=== PATIENT | female | born 1975 | race Caucasian/White ===

== ENCOUNTER 2016-07-28 06:34 | Emergency (ER) | payer SELFPAY ==
[2016-07-28] MEDS ORDERED: ONDANSETRON 4 MG TAB.RAPDIS PO ONE (06:48)
--- NOTE | 2016-07-28 07:05 | ER Document Report ---
ED General - General Chief Complaint: Nausea/Vomiting/Diarrhea Stated Complaint: VOMITING Mode of Arrival: Ambulatory Information source: Patient Notes: 41-year-old female presents with complaints of nausea vomiting over the past week. Patient notes she came with the family member to the hospital a week ago , believes she had flulike symptoms since then. Patient denies any fevers or chills TRAVEL OUTSIDE OF THE [place] IN LAST 30 DAYS: No - HPI Onset: Last week Onset/Duration: Persistent Quality of pain: No pain Severity: Mild Pain Level: Denies Associated symptoms: Nausea, Vomiting, Sinus pain/drainage Exacerbated by: Denies Relieved by: Denies Similar symptoms previously: No Recently seen / treated by doctor: No - Related Data Allergies/Adverse Reactions: ceftriaxone sodium [From Rocephin] Allergy (Verified 04/19/16 12:06) meperidine HCl [From Demerol] Allergy (Verified 04/19/16 12:06) naproxen Allergy (Verified 04/19/16 12:06) promethazine HCl [From Phenergan] Allergy (Verified 04/19/16 12:06) Sulfa (Sulfonamide Antibiotics) Allergy (Verified 04/19/16 12:06) tramadol Allergy (Verified 04/19/16 12:06) Past Medical History - Social History Smoking Status: Current Every Day Smoker Cigarette use (# per day): Yes Chew tobacco use (# tins/day): No Smoking Education Provided: No Frequency of alcohol use: None Drug Abuse: None Family History: Arthritis, CAD, COPD, CVA, DM, Hyperlipidemia, Hypertension, Malignancy Patient has suicidal ideation: No Patient has homicidal ideation: No - Past Medical History Cardiac Medical History: Reports: Hx Hypertension Neurological Medical History: Reports: Hx Migraine Endocrine Medical History: Reports: Hx Diabetes Mellitus Type 2 - Diet- controlled diabetes Renal/ Medical History: Denies: Hx Peritoneal Dialysis GI Medical History: Reports: Hx Gastroesophageal Reflux Disease Musculoskeltal Medical History: Reports Hx Arthritis, Reports Hx Musculoskeletal Deformity, Reports Hx Musculoskeletal Trauma Psychiatric Medical History: Reports: Hx Anxiety, Hx Depression Traumatic Medical History: Reports: Hx Fractures - Toe Past Surgical History: Reports: Hx Adenoidectomy, Hx Dilation and Curettage, Hx Genitourinary Surgery - D&C, Hx Hysterectomy, Hx Tonsillectomy - adnoids removed , tubes in ears - Immunizations Immunizations up to date: Yes Hx Diphtheria, Pertussis, Tetanus Vaccination: Yes Review of Systems - Review of Systems Notes: REVIEW OF SYSTEMS: CONSTITUTIONAL : Denies fever, chills, or sweats. Denies recent illness. EENT: Denies eye, ear, throat, or mouth pain or symptoms. Denies nasal or sinus congestion or discharge. Denies throat, tongue, or mouth swelling or difficulty swallowing. CARDIOVASCULAR: Denies chest pain. Denies palpitations or racing or irregular heart beat. Denies ankle edema. RESPIRATORY: Denies cough, cold, or chest congestion. Denies shortness of breath, difficulty breathing, or wheezing. GASTROINTESTINAL: Admits to nausea vomiting gastric reflux symptoms GENITOURINARY: Denies difficulty urinating, painful urination, burning, frequency, blood in urine, or discharge. FEMALE GENITOURINARY: Denies vaginal bleeding, heavy or abnormal periods, irregular periods. Denies vaginal discharge or odor. MUSCULOSKELETAL: Denies back or neck pain or stiffness. Denies joint pain or swelling. SKIN: Denies rash, lesions or sores. HEMATOLOGIC : Denies easy bruising or bleeding. LYMPHATIC: Denies swollen, enlarged glands. NEUROLOGICAL: Denies confusion or altered mental status. Denies passing out or loss of consciousness. Denies dizziness or lightheadedness. Denies headache. Denies weakness or paralysis or loss of use of either side. Denies problems with gait or speech. Denies sensory loss, numbness, or tingling. Denies seizures. PSYCHIATRIC: Denies anxiety or stress. Denies depression, suicidal ideation, or homicidal ideation. ALL OTHER SYSTEMS REVIEWED AND NEGATIVE. Dictation was performed using iWelcome voice recognition software PHYSICAL EXAMINATION: GENERAL: Well-appearing, well-nourished and in no acute distress. HEAD: Atraumatic, normocephalic. EYES: Pupils equal round and reactive to light, extraocular movements intact, conjunctiva are normal. ENT: Nares patent, oropharynx clear without exudates. Moist mucous membranes. NECK: Normal range of motion, supple without lymphadenopathy LUNGS: Breath sounds clear to auscultation bilaterally and equal. No wheezes rales or rhonchi. HEART: Regular rate and rhythm without murmurs ABDOMEN: Soft, nontender, nondistended abdomen. No guarding, no rebound. No masses appreciated. Patient actively dry heaving Female : deferred Musculoskeletal: Normal range of motion, no pitting or edema. No cyanosis. NEUROLOGICAL: Cranial nerves grossly intact. Normal speech, normal gait. Normal sensory, motor exams PSYCH: Normal mood, normal affect. SKIN: Warm, Dry, normal turgor, no rashes or lesions noted. Physical Exam - Vital signs Vitals: Temp Pulse Resp BP Pulse Ox 97.3 F 89 18 125/96 H 100 07/28/16 06:38 07/28/16 06:38 07/28/16 06:38 07/28/16 06:38 07/28/16 06:38 Course - Re-evaluation Re-evalutation: 07/28/16 07:03 Patient will be given nausea control influenza is pending otherwise she looks well is in no distress 07/28/16 07:04 07/28/16 08:11 Patient's nausea is well controlled, now she admits that she is having pressure sensation sinus drainage. I will treat her for acute sinusitis After performing a Medical Screening Examination, I estimate there is LOW risk for ACUTE CORONARY SYNDROME, RESPIRATORY FAILURE, SEPSIS OR MENINGITIS, thus I consider the discharge disposition reasonable. The patient and I have discussed the diagnosis and risks, and we agree with discharging home with close follow- up. We also discussed returning to the Emergency Department immediately if new or worsening symptoms occur. We have discussed the symptoms which are most concerning (e.g., changing or worsening pain, trouble swallowing or breathing, neck stiffness, fever) that necessitate immediate return. - Vital Signs Vital signs: Temp Pulse Resp BP Pulse Ox 97.7 F 89 18 125/96 H 100 07/28/16 07:59 07/28/16 06:38 07/28/16 06:38 07/28/16 06:38 07/28/16 06:38 Discharge - Discharge Clinical Impression: Sinusitis Qualifiers: Sinusitis location: frontal Chronicity: acute Recurrence: non-recurrent Qualified Code(s): J01.10 - Acute frontal sinusitis, unspecified Nausea & vomiting Qualifiers: Vomiting type: unspecified Vomiting Intractability: non-intractable Qualified Code(s): R11.2 - Nausea with vomiting, unspecified Condition: Stable Disposition: HOME, SELF-CARE Instructions: Vomiting ([facility]) Additional Instructions: Follow up with your physician tomorrow for further care or return to the ED IMMEDIATELY if symptoms worsen or new concerns occur Prescriptions: Azithromycin 250 mg PO ASDIR PRN #6 tablet PRN Reason: Ondansetron [Zofran Odt] 8 mg PO Q6 #14 tab.fatoudis
[2016-07-28 08:30] VITALS: BP 118/86
== END 2016-07-28 08:30 | disposition home or self-care (01) ==
LOC: ER 06:34
DX: J01.10 Acute frontal sinusitis, unspecified (principal); R11.2 Nausea with vomiting, unspecified; R19.7 Diarrhea, unspecified; F17.210 Nicotine dependence, cigarettes, uncomplicated; E11.9 Type 2 diabetes mellitus without complications; I10 Essential (primary) hypertension; Z88.3 Allergy status to other anti-infective agents; Z88.2 Allergy status to sulfonamides
CPT/HCPCS: 99283; 87804; S0119

== ENCOUNTER 2017-03-26 19:07 | Emergency (ER) | payer SELFPAY ==
--- NOTE | 2017-03-26 21:06 | RADIOLOGY REPORT (SQ) ---
EXAM DESCRIPTION: FOOT RIGHT COMPLETE COMPLETED DATE/TIME: 03/26/2017 8:34 pm REASON FOR STUDY: injury COMPARISON: None. NUMBER OF VIEWS: Three views. TECHNIQUE: AP, lateral and oblique radiographic images acquired of the right foot. LIMITATIONS: None. FINDINGS: MINERALIZATION: Normal. BONES: No acute fracture or dislocation. No worrisome bone lesions. JOINTS: No effusions. SOFT TISSUES: No soft tissue swelling. No foreign body. OTHER: No other significant finding. IMPRESSION: NEGATIVE STUDY OF THE RIGHT FOOT. NO RADIOGRAPHIC EVIDENCE OF ACUTE INJURY. TECHNICAL DOCUMENTATION: JOB ID: [id number] [employer]- All Rights Reserved
[2017-03-26] MEDS ORDERED: HYDROCODONE/ACETAMINOPHEN 5-325 MG 6 TAB/DSPK PO PRN (21:33)
--- NOTE | 2017-03-26 21:35 | ER Document Report ---
HPI - HPI Patient complains to provider of: Right foot injury Pain Level: 4 Context: Patient is a 42-year-old female comes emergency department for chief complaint of pain to her right foot. She states that yesterday morning she accidentally kicked a box spring, she reports a bruise over her foot and today it seems increasingly painful and difficult to walk on. She states she is afraid she broke it and she came in to have it checked. She denies any other areas of pain. She denies any other injuries. - REPRODUCTIVE Reproductive: DENIES: : - DERM Skin Color: Normal Past Medical History - General Information source: Patient - Social History Smoking Status: Never Smoker Frequency of alcohol use: None Drug Abuse: None Lives with: Family Family History: Arthritis, CAD, COPD, CVA, DM, Hyperlipidemia, Hypertension, Malignancy Patient has suicidal ideation: No Patient has homicidal ideation: No - Past Medical History Cardiac Medical History: Reports: Hx Hypertension Neurological Medical History: Reports: Hx Migraine Endocrine Medical History: Reports: Hx Diabetes Mellitus Type 2 - Diet- controlled diabetes Renal/ Medical History: Denies: Hx Peritoneal Dialysis GI Medical History: Reports: Hx Gastroesophageal Reflux Disease Musculoskeltal Medical History: Reports Hx Arthritis, Reports Hx Musculoskeletal Deformity, Reports Hx Musculoskeletal Trauma Psychiatric Medical History: Reports: Hx Anxiety, Hx Depression Traumatic Medical History: Reports: Hx Fractures - Toe Past Surgical History: Reports: Hx Adenoidectomy, Hx Dilation and Curettage, Hx Genitourinary Surgery - D&C, Hx Hysterectomy, Hx Tonsillectomy - adnoids removed , tubes in ears - Immunizations Immunizations up to date: Yes Hx Diphtheria, Pertussis, Tetanus Vaccination: Yes Vertical Provider Document - CONSTITUTIONAL General Appearance: WD/WN, No Apparent Distress - INFECTION CONTROL TRAVEL OUTSIDE OF THE [place] IN LAST 30 DAYS: No - HEENT HEENT: Atraumatic - NECK Neck: Normal Inspection - RESPIRATORY Respiratory: Breath Sounds Normal, No Respiratory Distress O2 Sat by Pulse Oximetry: 99 - CARDIOVASCULAR Cardiovascular: Regular Rate, Regular Rhythm - GI/ABDOMEN Gastrointestinal: Abdomen Soft, Abdomen Non-Tender - BACK Back: Normal Inspection - MUSCULOSKELETAL/EXTREMETIES Musculoskeletal/Extremeties: Tender - Small ecchymosis noted over the right dorsal lateral foot, mild surrounding tenderness, range of motion of the toes intact, normal capillary refill and sensation, normal ankle exam, normal leg, knee, hip exam. Course - Re-evaluation Re-evalutation: Mild contusion over the dorsal right foot. X-rays negative for fracture. Patient states she rarely has crutches and ibuprofen at home. Giving recommendations. - Vital Signs Vital signs: Temp Pulse Resp BP Pulse Ox 98.6 F 95 20 139/85 H 99 03/26/17 19:32 03/26/17 19:32 03/26/17 19:32 03/26/17 19:32 03/26/17 19:32 - Diagnostic Test Radiology reviewed: Image reviewed, Reports reviewed Discharge - Discharge Clinical Impression: Right foot injury Qualifiers: Encounter type: initial encounter Qualified Code(s): S99.921A - Unspecified injury of right foot, initial encounter Contusion of right foot Qualifiers: Encounter type: initial encounter Qualified Code(s): S90.31XA - Contusion of right foot, initial encounter Condition: Stable Disposition: HOME, SELF-CARE Additional Instructions: Your x-ray does not show any fracture or concerning abnormality. Examination is consistent with contusion, soft tissue injury, recommendation is to apply ice to the area 3-4 times a day for 10-15 minutes, take your ibuprofen every 6 hours, elevate your foot, and use your crutches for the next 2-3 days. Resume normal activity as tolerated. Follow-up with primary care. Return to the emergency department for any concerning symptoms including severe pain or swelling. Forms: Return to Work Referrals: BAUTISTA ALBERTS MD [Primary Care Provider] - Follow up as needed
[2017-03-26 21:53] VITALS: BP 121/84
== END 2017-03-26 21:53 | disposition home or self-care (01) ==
LOC: ER 19:07
DX: S90.31XA Contusion of right foot, initial encounter (principal); M79.671 Pain in right foot; W22.03XA Walked into furniture, initial encounter; E11.9 Type 2 diabetes mellitus without complications; I10 Essential (primary) hypertension; Z87.81 Personal history of (healed) traumatic fracture
CPT/HCPCS: 99283

== ENCOUNTER 2017-04-23 11:33 | Emergency (ER) | payer SELFPAY ==
--- NOTE | 2017-04-23 12:13 | ER Document Report ---
ED Fall - General Stated Complaint: FALL/MOUTH PAIN Time Seen by Provider: 04/23/17 12:00 Mode of Arrival: Ambulatory Information source: Patient TRAVEL OUTSIDE OF THE [place] IN LAST 30 DAYS: No - HPI Patient complains to provider of: fall Occurred: This morning - pt fell earlier this am with injury to jaw and L knee. No LOC, no neck pain - Related data Allergies/Adverse Reactions: ceftriaxone sodium [From Rocephin] Allergy (Verified 04/23/17 12:23) hydrocodone Allergy (Verified 04/23/17 12:23) meperidine HCl [From Demerol] Allergy (Verified 04/23/17 12:23) naproxen Allergy (Verified 04/23/17 12:23) phenazopyridine [From Pyridium] Allergy (Verified 04/23/17 12:23) promethazine HCl [From Phenergan] Allergy (Verified 04/23/17 12:23) Sulfa (Sulfonamide Antibiotics) Allergy (Verified 04/23/17 12:23) tramadol Allergy (Verified 04/23/17 12:23) Past Medical History - General Information source: Patient - Social History Smoking Status: Never Smoker Cigarette use (# per day): No Chew tobacco use (# tins/day): No Smoking Education Provided: No Family History: Arthritis, CAD, COPD, CVA, DM, Hyperlipidemia, Hypertension, Malignancy - Past Medical History Cardiac Medical History: Reports: Hx Hypertension Neurological Medical History: Reports: Hx Migraine Endocrine Medical History: Reports: Hx Diabetes Mellitus Type 2 - Diet- controlled diabetes Renal/ Medical History: Denies: Hx Peritoneal Dialysis GI Medical History: Reports: Hx Gastroesophageal Reflux Disease Musculoskeltal Medical History: Reports Hx Arthritis, Reports Hx Musculoskeletal Deformity, Reports Hx Musculoskeletal Trauma Psychiatric Medical History: Reports: Hx Anxiety, Hx Depression Traumatic Medical History: Reports: Hx Fractures - Toe Past Surgical History: Reports: Hx Adenoidectomy, Hx Dilation and Curettage, Hx Genitourinary Surgery - D&C, Hx Hysterectomy, Hx Tonsillectomy - adnoids removed , tubes in ears - Immunizations Immunizations up to date: Yes Hx Diphtheria, Pertussis, Tetanus Vaccination: Yes Review of Systems - Review of Systems Constitutional: No symptoms reported EENT: Other - jaw pain Cardiovascular: No symptoms reported Respiratory: No symptoms reported Gastrointestinal: No symptoms reported Musculoskeletal: See HPI, Joint pain -: Yes All other systems reviewed and negative Physical Exam - General General appearance: Appears well In distress: None - HEENT Head: Other - there is TTP of the R mandible diffusely -- pt is able to open and close her mouth and handle her secretions. Tympanic membrane: Normal Pharynx: Normal Neck: Normal - Respiratory Respiratory status: No respiratory distress Chest status: Nontender Breath sounds: Normal - Cardiovascular Rhythm: Regular Heart sounds: Normal auscultation - Abdominal Inspection: Normal Tenderness: Nontender - Extremities Knee: Tender - there is TTP of the L knee diffusely with no effusion. There is no valgus or varus laxity and there is neg anterior and posterior drawer sign. There is FROM and it is N/V intact Course - Diagnostic Test Radiology reviewed: Reports reviewed - neg Procedures - Immobilization Left Knee Time completed: 13:09 Pre-Proc Neuro Vasc Exam: Normal Immobilizer type: Crutches, Knee immobilizer Performed by: RN Post-Proc Neuro Vasc Exam: Normal Alignment checked and good: Yes Discharge - Discharge Clinical Impression: Fall Qualifiers: Encounter type: initial encounter Qualified Code(s): W19.XXXA - Unspecified fall, initial encounter Condition: Stable Disposition: HOME, SELF-CARE Additional Instructions: rest, take meds as prescribed, return if worse Prescriptions: Cyclobenzaprine HCl [Flexeril 10 mg Tablet] 10 mg PO TIDP PRN #15 tab PRN Reason: Methylprednisolone [Medrol Dosepack (4 mg/Tab) 21 Tab/Dosepak] 4 mg PO ASDIR PRN #21 tab.ds.pk PRN Reason: Tramadol HCl 50 mg PO BID #14 tablet
--- NOTE | 2017-04-23 12:53 | RADIOLOGY REPORT (SQ) ---
EXAM DESCRIPTION: KNEE LEFT 3 VIEWS COMPLETED DATE/TIME: 04/23/2017 12:44 pm REASON FOR STUDY: fall COMPARISON: None. NUMBER OF VIEWS: Three views. TECHNIQUE: AP, lateral, and sunrise patella radiographic images acquired of the left knee. LIMITATIONS: None. FINDINGS: MINERALIZATION: Normal. BONES: No acute fracture or dislocation. No worrisome bone lesions. JOINT: No effusion. SOFT TISSUES: No soft tissue swelling. No radio-opaque foreign body. OTHER: No other significant finding. IMPRESSION: NEGATIVE STUDY OF THE LEFT KNEE. NO RADIOGRAPHIC EVIDENCE OF ACUTE INJURY. TECHNICAL DOCUMENTATION: JOB ID: [id number] [employer]- All Rights Reserved
--- NOTE | 2017-04-23 12:55 | RADIOLOGY REPORT (SQ) ---
EXAM DESCRIPTION: MANDIBLE 4 VIEWS OR MORE COMPLETED DATE/TIME: 04/23/2017 12:44 pm REASON FOR STUDY: fall COMPARISON: None. NUMBER OF VIEWS: Four view. TECHNIQUE: Images of the mandible acquired. AP, Aurora's, angled right, angled left mandible images. LIMITATIONS: None. FINDINGS: MANDIBLE: No acute fracture. No disruption of the right or left temporomandibular joints. ORBITS: No fracture. No foreign body. SINUSES: No mucosal thickening. No air fluid levels. FACIAL BONES: No fracture. OTHER: No other significant finding. IMPRESSION: NO ACUTE FRACTURE OR MALALIGNMENT. TECHNICAL DOCUMENTATION: JOB ID: [id number] [employer]- All Rights Reserved
[2017-04-23] MEDS ORDERED: METHYLPREDNISOLONE DOSEPAK (4 MG/TAB) 21 TAB/DSPK PO PRN (13:57)
[2017-04-23 14:10] VITALS: BP 111/82
== END 2017-04-23 14:10 | disposition home or self-care (01) ==
LOC: ER 11:33
DX: S09.93XA Unspecified injury of face, initial encounter (principal); S89.92XA Unspecified injury of left lower leg, initial encounter; W19.XXXA Unspecified fall, initial encounter; I10 Essential (primary) hypertension; E11.9 Type 2 diabetes mellitus without complications; Z88.2 Allergy status to sulfonamides; Z90.710 Acquired absence of both cervix and uterus
CPT/HCPCS: 99283; 73562; 70110; L1830

== ENCOUNTER 2017-10-26 15:31 | Emergency (ER) | payer SELFPAY ==
--- NOTE | 2017-10-26 15:40 | ER Document Report ---
ED Psych Disorder / Suicide - General Stated Complaint: ANXIETY Time Seen by Provider: 10/26/17 15:38 Mode of Arrival: Medic Information source: Patient, Emergency Med Personnel TRAVEL OUTSIDE OF THE [place] 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 Associated symptoms: Aggressive, Agitated, Angry, Anxious Similar symptoms previously: Yes Recently seen / treated by doctor: No - Related Data Allergies/Adverse Reactions: ceftriaxone sodium [From Rocephin] Allergy (Verified 04/23/17 12:23) hydrocodone Allergy (Verified 04/23/17 12:23) meperidine HCl [From Demerol] Allergy (Verified 04/23/17 12:23) naproxen Allergy (Verified 04/23/17 12:23) phenazopyridine [From Pyridium] Allergy (Verified 04/23/17 12:23) promethazine HCl [From Phenergan] Allergy (Verified 04/23/17 12:23) Sulfa (Sulfonamide Antibiotics) Allergy (Verified 04/23/17 12:23) tramadol Allergy (Verified 04/23/17 12:23) Past Medical History - General Information source: Patient - Social History Smoking Status: Unknown if Ever Smoked Frequency of alcohol use: Rare Drug Abuse: None Lives with: Family Family History: Arthritis, CAD, COPD, CVA, DM, Hyperlipidemia, Hypertension, Malignancy - Past Medical History Cardiac Medical History: Reports: Hx Hypertension Pulmonary Medical History: Reports: None Neurological Medical History: Reports: Hx Migraine Endocrine Medical History: Reports: Hx Diabetes Mellitus Type 2 - Diet- controlled diabetes Renal/ Medical History: Denies: Hx Peritoneal Dialysis GI Medical History: Reports: Hx Gastroesophageal Reflux Disease Musculoskeltal Medical History: Reports Hx Arthritis, Reports Hx Musculoskeletal Deformity, Reports Hx Musculoskeletal Trauma Psychiatric Medical History: Reports: Hx Anxiety, Hx Depression Traumatic Medical History: Reports: Hx Fractures - Toe Past Surgical History: Reports: Hx Adenoidectomy, Hx Dilation and Curettage, Hx Genitourinary Surgery - D&C, Hx Hysterectomy, Hx Tonsillectomy - adnoids removed , tubes in ears - Immunizations Immunizations up to date: Yes Hx Diphtheria, Pertussis, Tetanus Vaccination: Yes Review of Systems - Review of Systems Constitutional: No symptoms reported EENT: No symptoms reported Cardiovascular: No symptoms reported Respiratory: No symptoms reported Gastrointestinal: No symptoms reported Genitourinary: No symptoms reported Female Genitourinary: No symptoms reported Musculoskeletal: See HPI Skin: No symptoms reported Neurological/Psychological: See HPI Physical Exam - Vital signs Vitals: Temp Pulse Resp BP Pulse Ox 97.8 F 78 14 121/83 98 10/26/17 16:28 10/26/17 16:28 10/26/17 16:28 10/26/17 16:28 10/26/17 16:28 Interpretation: Normal - General General appearance: Appears well, Alert In distress: None - HEENT Head: Normocephalic Eyes: Normal Conjunctiva: Normal Ears: Normal Nasal: Normal Mouth/Lips: Normal Mucous membranes: Normal Neck: Normal, Supple - Respiratory Respiratory status: No respiratory distress - Cardiovascular Rhythm: Regular - Abdominal Inspection: Normal Distension: No distension - Back Back: Normal - Extremities General upper extremity: Normal inspection, Tender - R. HAND, INDEX FINGER AND METACARPAL General lower extremity: Normal inspection - Neurological Neuro grossly intact: Yes Cognition: Normal Orientation: AAOx4 - Psychological Associated symptoms: Flat affect, Restlessness. No: Confused - Skin Skin Temperature: Warm Skin Moisture: Dry Skin Color: Normal Skin Turgor: Elastic Course - Vital Signs Vital signs: Temp Pulse Resp BP Pulse Ox 97.8 F 78 14 121/83 98 10/26/17 16:28 10/26/17 16:28 10/26/17 16:28 10/26/17 16:28 10/26/17 16:28 Discharge - Discharge Clinical Impression: Depressive disorder Anxiety disorder Qualifiers: Anxiety disorder type: unspecified anxiety disorder Qualified Code(s): F41.9 - Anxiety disorder, unspecified Condition: Stable Disposition: HOME, SELF-CARE Instructions: Anxiety ([facility]) Additional Instructions: MEDS DIRECTED. FOLLOW UP WITH OUTPATIENT BEHAVIORAL HEALTHCARE PROVIDER. Prescriptions: Escitalopram Oxalate [Lexapro 10 mg Tablet] 10 mg PO QHS #7 tablet Buspirone HCl [Buspar 5 mg Tablet] 1 tab PO BID #15 tab
--- NOTE | 2017-10-26 16:37 | PSYCHOLOGICAL NOTE ---
Psych Note - Psych Note Psych Note: Reason for consult: Anxiety Patient's mother, Viola, and daughter, Joanne, are at bedside per patient's request Pt aao x4. Pt with c/o of left knee and jaw pain. 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 Pt reports at 0630 this morning she her legs "went funny" and she fell, landed on both knees with weight mainly on her left knee and hit her jaw on a space heater. Pt reports sore jaw and left knee pain. Patient discloses that she knows everything started by her overheating today from the high temperatures. She disclosed that her boyfriend has been cheating on her and she just found out this morning. She reports that it is also stressful because today's the first and bills are due. 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 She disclosed that approximately 3 years ago her fianc from cancer and admits to attempting 3 times to kill herself; "I figure I tried 3 times and there is someone looking out for me and I am not supposed to ." Patient admits to chronic passive suicidal ideation i.e. no plans means or intent currently however states that she could never do anything because of her uncle. Patient's mother Milly and daughter Joanne both disclose they have no concerns of the patient causing herself or others harm however they are concerned she has so much stress on herself. Patient disclosed that she has a lump on her breast and is concerned because her younger sister had breast cancer and since she has no insurance she is unsure where to go to get a mammogram. Patient reports that her panic attacks started approximately 1 month ago; "this 1 just got away from me I just could not stop it." Patient is alert and orientated to person, place, time and circumstance. Mood is currently dysphoric with restricted affect clinician notes patient did receive medication to assist with her panic attack i.e. Versed by EMS. Patient discloses chronic passive suicidal ideation i.e. no plans means or intent with past attempts after losing her fianc to cancer. Patient denies plans means or intent saying she has to take care of her uncle and could never leave him. Patient denies homicidal ideation. Delusions are absent and behaviors congruent with intact reality based presentation i.e. organized and linear thought processes. Eye contact was maintained. Conversational speech was within normal rate, tone and prosody. Intellectual abilities appear to be within the average range. Attention and concentration are good. Insight, judgment, impulse control are good as evidenced by openly engaging with clinician discussing past medications that have worked and asking for assistance in continued mental health and medical care. 311 (F32.9) unspecified depressive disorder 300.00 (F4109) specified anxiety disorder Impression\\plan: Patient is cleared from acute psychiatric services. Patient arrived to [facility] after having a panic attack. Patient identifies multiple triggers. Patient does disclose passive suicidal ideation i.e. no plans means or intent. Patient's mother and daughter at bedside per patient's request disclose no concerns patient will do anything to harm herself or others. Patient is primary caregiver of her uncle who has ALS. Patient demonstrated forward thinking i.e. discussing caring for her uncle in finding out today she has a nurse that will be consistently coming to help, asking for assistance in finding 3 or relatively cheap medical care for a mammogram, disclosing she would like medications that Lexapro has worked in the past etc. Patient received resource list for area providers and discussed with clinician options since she has no insurance. Dr. Osorio was consulted and the care and management this patient; attending physician is agreement with recommendations and disposition.
[2017-10-26 17:21] VITALS: BP 127/93
--- NOTE | 2017-10-26 17:21 | RADIOLOGY REPORT (SQ) ---
EXAM DESCRIPTION: HAND RIGHT 3 VIEWS COMPLETED DATE/TIME: 10/26/2017 4:51 pm REASON FOR STUDY: TRAUMA INDEX FINGER COMPARISON: None. EXAM PARAMETERS: NUMBER OF VIEWS: Three views. TECHNIQUE: AP, lateral and oblique radiographic images acquired of the right hand. LIMITATIONS: None. FINDINGS: MINERALIZATION: Normal. BONES: No acute fracture or dislocation. No worrisome bone lesions. JOINTS: No effusions. SOFT TISSUES: No soft tissue swelling. No foreign body. OTHER: No other significant finding. IMPRESSION: NEGATIVE STUDY OF THE RIGHT HAND. NO RADIOGRAPHIC EVIDENCE OF ACUTE INJURY. TECHNICAL DOCUMENTATION: JOB ID: [id number] [employer]- All Rights Reserved Reading location - IP/workstation name: [email or web address]
== END 2017-10-26 17:21 | disposition home or self-care (01) ==
LOC: ER 15:31
DX: F32.9 Major depressive disorder, single episode, unspecified (principal); F41.9 Anxiety disorder, unspecified; S69.91XA Unspecified injury of right wrist, hand and finger(s), initial encounter; W22.8XXA Striking against or struck by other objects, initial encounter; Z91.5 Personal history of self-harm; I10 Essential (primary) hypertension; E11.9 Type 2 diabetes mellitus without complications
CPT/HCPCS: 99284

== ENCOUNTER 2018-05-23 13:31 | Emergency (ER) | payer SELFPAY ==
[2018-05-23] MEDS ORDERED: HYDROMORPHONE HCL INJ/PF 2 MG/ML AMPULE IV ONE ×3 (15:25→21:01)
[2018-05-23] MEDS ORDERED: ONDANSETRON HCL INJ/PF 4 MG/2 ML SDV IV ONE ×2 (15:26→21:03)
[2018-05-23] MEDS ORDERED: PHENAZOPYRIDINE HCL 200 MG TABLET PO ONE (15:27)
[2018-05-23 15:44] LABS: HEMATOCRIT 41.7 % (36.0-47.0); HEMOGLOBIN 14.2 g/dL (12.0-15.5); MEAN CORPUSCULAR HEMOGLOBIN 31.9 pg (27.0-33.4); MEAN CORPUSCULAR HGB CONC 33.9 g/dL (32.0-36.0); MEAN CORPUSCULAR VOLUME 94 fl (80-97); PLATELET COUNT 459 10^3/uL (150-450); RED BLOOD COUNT 4.43 10^6/uL (3.72-5.28); WHITE BLOOD COUNT 22.8 10^3/uL (4.0-10.5)
[2018-05-23 15:54] LABS: AMORPHOUS SEDIMENT,URINE TRACE /HPF; APPEARANCE,URINE CLOUDY; BILIRUBIN,URINE NEGATIVE (NEGATIVE); COLOR,URINE YELLOW; GLUCOSE, URINE NEGATIVE (NEGATIVE); KETONES,URINE NEGATIVE (NEGATIVE); LEUKOCYTE ESTERASE,URINE LARGE (NEGATIVE); NITRITE,URINE NEGATIVE (NEGATIVE); PROTEIN,URINE NEGATIVE (NEGATIVE); UROBILINOGEN,URINE NEGATIVE mg/dL (<2.0)
[2018-05-23 16:02] LABS: ALANINE AMINOTRANSFERASE 10 U/L (9-52); ALBUMIN 4.4 g/dL (3.5-5.0); ALKALINE PHOSPHATASE 85 U/L (38-126); ANION GAP 9 (5-19); ASPARTATE AMINO TRANSFERASE 23 U/L (14-36); BILIRUBIN,DIRECT 0.3 mg/dL (0.0-0.4); BILIRUBIN,TOTAL 0.6 mg/dL (0.2-1.3); BLOOD UREA NITROGEN 12 mg/dL (7-20); CALCIUM 9.8 mg/dL (8.4-10.2); CARBON DIOXIDE 29 mmol/L (22-30); CHLORIDE 100 mmol/L (98-107); GLUCOSE 129 mg/dL (75-110); POTASSIUM 3.9 mmol/L (3.6-5.0); SODIUM 137.9 mmol/L (137-145); TOTAL PROTEIN 7.9 g/dL (6.3-8.2)
[2018-05-23 16:05] LABS: ABSOLUTE LYMPHOCYTES# (MANUAL) 5.2 10^3/uL (0.5-4.7); ABSOLUTE MONOCYTES # (MANUAL) 0.9 10^3/uL (0.1-1.4); ABSOLUTE NEUTROPHILS# (MANUAL) 16.6 10^3/uL (1.7-8.2); BASOPHILS % (MANUAL) 0 % (0-2); EOSINOPHILS % (MANUAL) 0 % (0-6); LYMPHOCYTES % (MANUAL) 21 % (13-45); MONOCYTES % (MANUAL) 4 % (3-13); SEGMENTED NEUTROPHILS % (MAN) 73 % (42-78); TOTAL CELLS COUNTED 100
[2018-05-23 16:07] LABS: PLATELET COMMENT INCREASED; TOXIC GRANULATION 1+
[2018-05-23 16:08] LABS: RBC MORPHOLOGY COMMENT NORMO-CYTIC/CHROMIC
[2018-05-23] MEDS ORDERED: NORMAL SALINE 1000 ML 1,000 ML IV ONE (16:42)
[2018-05-23] MEDS ORDERED: LEVOFLOXACIN 750 MG/D5W RTU 750 MG/150 ML RTUPB IV ONE (16:43)
--- NOTE | 2018-05-23 16:44 | ER Document Report ---
ED GI/ - General Chief Complaint: Flank Pain Stated Complaint: PAINFUL URINATION Time Seen by Provider: 05/23/18 15:11 Mode of Arrival: Ambulatory Information source: Patient Notes: Patient is a 41-year-old female comes emergency room complaining of severe ureteric tract infections. States she has had these urinary tract infections ever since she was 16 years old if she does not jump on them when they first started she occasionally ends up in the hospital. She has not had one in quite a while and this 1 I packed her last night at 1:30 AM woke her up out of sleep with severe suprapubic pain and tenderness with pins and needles and razor blade like pain. She denies any fever she denies any nausea vomiting or diarrhea. She has a history of hypertension and anxiety. She states that usually when she gets these the give her Cipro Pyridium and hydrocodone 5 mg. And normally couple days is gone. She does smoke approximately three fourths of a pack of cigarettes a day and she is tried taking Tylenol and her last hydrocodone from the last time which has not helped her discomfort or pain. She has had a partial hysterectomy. Patient currently does not have a primary care physician. TRAVEL OUTSIDE OF THE [place] IN LAST 30 DAYS: No - HPI Patient complains to provider of: Abdominal pain, Dysuria, Flank pain, Hematu paulino, Urinary retention Onset: Other - 06 26 Timing/Duration: Sudden, Persistent, Worse Quality of pain: Cramping, Sharp, Stabbing, Throbbing Severity at maximum: Severe Severity in ED: Severe Pain Level: 5 Context: denies: Recent trauma Location: Epigastric, LUQ, LLQ, RUQ, RLQ, Left flank, Right flank, Suprapubic, Pelvis Adult Front & Back Diagram: 1 - Area pain and discomfort is diffuse. Vaginal bleeding (Compared to normal period): None LMP: Partial hysterectomy - Related Data Allergies/Adverse Reactions: ceftriaxone sodium [From Rocephin] Allergy (Verified 04/23/17 12:23) hydrocodone Allergy (Verified 04/23/17 12:23) meperidine HCl [From Demerol] Allergy (Verified 04/23/17 12:23) naproxen Allergy (Verified 04/23/17 12:23) phenazopyridine [From Pyridium] Allergy (Verified 04/23/17 12:23) promethazine HCl [From Phenergan] Allergy (Verified 04/23/17 12:23) Sulfa (Sulfonamide Antibiotics) Allergy (Verified 04/23/17 12:23) tramadol Allergy (Verified 04/23/17 12:23) Past Medical History - General Information source: Patient - Social History Smoking Status: Current Every Day Smoker Cigarette use (# per day): Yes Chew tobacco use (# tins/day): No Smoking Education Provided: Yes Frequency of alcohol use: None Drug Abuse: None Lives with: Family Family History: Reviewed & Not Pertinent, Arthritis, CAD, COPD, CVA, DM, Hyperlipidemia, Hypertension, Malignancy Patient has suicidal ideation: No Patient has homicidal ideation: No - Past Medical History Cardiac Medical History: Reports: Hx Hypertension Neurological Medical History: Reports: Hx Migraine Endocrine Medical History: Reports: Hx Diabetes Mellitus Type 2 - Diet- controlled diabetes Renal/ Medical History: Denies: Hx Peritoneal Dialysis GI Medical History: Reports: Hx Gastroesophageal Reflux Disease Musculoskeletal Medical History: Reports Hx Arthritis, Reports Hx Musculoskeletal Deformity, Reports Hx Musculoskeletal Trauma Psychiatric Medical History: Reports: Hx Anxiety, Hx Depression Traumatic Medical History: Reports: Hx Fractures - Toe Past Surgical History: Reports: Hx Adenoidectomy, Hx Dilation and Curettage, Hx Genitourinary Surgery - D&C, Hx Hysterectomy, Hx Tonsillectomy - adnoids removed, tubes in ears - Immunizations Immunizations up to date: Yes Hx Diphtheria, Pertussis, Tetanus Vaccination: Yes Review of Systems - Review of Systems Constitutional: No symptoms reported EENT: No symptoms reported Cardiovascular: No symptoms reported Respiratory: No symptoms reported Gastrointestinal: See HPI, Abdominal pain, Nausea, Poor fluid intake Genitourinary: See HPI, Dysuria, Frequency, Flank pain, Hematuria, Pain, Urgency, Retention Female Genitourinary: No symptoms reported Musculoskeletal: No symptoms reported Skin: No symptoms reported Hematologic/Lymphatic: No symptoms reported Neurological/Psychological: No symptoms reported -: Yes All other systems reviewed and negative Physical Exam - Vital signs Vitals: Temp Pulse Resp BP Pulse Ox 97.4 F 85 20 111/74 98 05/23/18 13:36 05/23/18 13:36 05/23/18 13:36 05/23/18 13:36 05/23/18 13:36 Interpretation: Hypotensive - Notes Notes: PHYSICAL EXAMINATION: GENERAL: Patient is a slightly malnourished 43-year-old female who appears older than stated age. She is in obvious severe pain and discomfort she is crying and holding her abdomen. She is also holding the upper portion of her pubic area. Patient is crying stating that this is the worst pain she has felt in years. HEAD: Atraumatic, normocephalic. EYES: Pupils equal round and reactive to light, extraocular movements intact, conjunctiva are normal. ENT: Nares patent, oropharynx clear without exudates. Moist mucous membranes. NECK: Normal range of motion, supple without lymphadenopathy LUNGS: Breath sounds clear to auscultation bilaterally and equal. No wheezes rales or rhonchi. HEART: Regular rate and rhythm without murmurs ABDOMEN: Examination patient's abdomen and suprapubic area shows diffuse tenderness across the abdomen nonspecific in its presentation. It is much more increased suprapubically. She also has some right-sided left-sided flank pain to percussion. Patient's not able to sit still long enough to really do a good physical exam on the second of it.. Female : deferred Musculoskeletal: Normal range of motion, no pitting or edema. No cyanosis. NEUROLOGICAL: Normal speech, normal gait. Normal sensory, motor exams PSYCH: Normal mood, normal affect. SKIN: Warm, Dry, normal turgor, no rashes or lesions noted. Course - Re-evaluation Re-evalutation: 05/23/18 21:44 Patient's great length of stay here today is been based on several factors. One we were not able to get her to a room to we had a long wait for CT and that was added on at the very end since patient had a colicky presentation and severe discomfort and pain we did not want to miss a high low presentation and/or a stone that we had checked for. And possibly having an obstruction. By the time that all came back patient's pain medication wore off and she was headed back to where she had the pain and discomfort with nausea coming back on again. She has not vomited while she is been here. I did go to the extent of starting a septic type presentation when she came back with 22,000 on her white count and a little low blood pressure however she was not tachycardic if she did not look gravely ill but we did give her fluid bolus her lactic acid came back at 0.8. She has had allergies to multiple antibiotics so I have again elected to give her Levaquin as my first line antibiotic and that was 750 mg takes a long time to run in. When all was said and done patient's pain was still moderate again she has not vomited but we have not tried to feed her yet. I went in and sat with patient and asked her what her choice would be to do would go home or to see if I could get her admitted she did elect to want me to talk to the hospitalist about admission. I knew that she was borderline if at all on being admitted since she is able to keep food down and she has not vomited and she has no fever and we have given her a dose of IV antibiotics and basically there is not a lot more for them to do in house. But I did call and I did talk to Dr. Anglin who was very cooperative and informative. We discussed the openly I told him that I had no particular feelings either way I feel comfortable sending her home patient's comfort level was coming in so I did decided to run it by them. After we discussed it I felt that this was a appropriate plan of action we can try to send patient home and I believe she will make it on oral medications and if not she can come back and we will failed outpatient treatment and would have qualify for admission at that point. I do not for see discharging her home to be a detriment to her health. So at this point time I am in agreement with the decision from my standpoint to send the patient home and I went back in and discussed it with patient and she is very satisfied with that as well. As she said she had her first child left the room she thought about it and she really felt like she should go home first. She understands that she can return here if there is any concerns or problems if he spikes a fever or she is unrelenting pain she will return here to be hopefully admitted at that time. - Vital Signs Vital signs: Temp Pulse Resp BP Pulse Ox 98.2 F 81 18 140/77 H 97 05/23/18 22:05 05/23/18 22:05 05/23/18 22:05 05/23/18 22:05 05/23/18 22:05 - Laboratory Result Diagrams: 05/23/18 15:21 05/23/18 15:21 Laboratory results interpreted by me: 05/23/18 05/23/18 05/23/18 14:54 15:21 15:21 WBC 22.8 H Plt Count 459 H Abs Neuts (Manual) 16.6 H Abs Lymphs (Manual) 5.2 H Glucose 129 H Ur Leukocyte Esterase LARGE H Urine Ascorbic Acid 40 H Discharge - Discharge Clinical Impression: Urinary tract infection Qualifiers: Urinary tract infection type: acute cystitis Hematuria presence: with hematuria Qualified Code(s): N30.01 - Acute cystitis with hematuria Condition: Stable Disposition: HOME, SELF-CARE Instructions: Ciprofloxacin ([facility]), Urinary Anesthetic Agent ([facility]), Urinary Tract Infection ([facility]) Additional Instructions: URINARY TRACT INFECTION: Your evaluation indicates that you have a urinary tract infection. This is due to germs growing in the bladder. This is a common problem. This infection usually responds quickly to antibiotics. Your antibiotic should be taken exactly as prescribed. Drink plenty of fluids -- three to four quarts a day. Occasionally, a bladder anesthetic will be prescribed to help stop the feeling of urgency until the antibiotic has a chance to clear the infection. This may cause your urine to be dark orange. Certain urine infections require a culture. If the doctor obtained a culture, the results will be back in two days. You should call to see if a change in treatment is needed. A repeat urinalysis after you finish treatment is often recommended. The physician will let you know if further testing is required. Call the doctor if you develop fever, chills, flank pain, inability to uri jhonatan, or blood in the urine. ANTIBIOTIC THERAPY: You have been given an antibiotic prescription. It's important that you take all the medication, unless instructed otherwise by your physician. Failure to complete the entire course can result in relapse of your condition. Common side effects of antibiotics include nausea, intestinal cramping, or diarrhea. Women may develop vaginal yeast infections, and babies can get yeast (thrush) in the mouth following the use of antibiotics. Contact your physician if you develop significant side effects from this medication. Allergy to this antibiotic can result in hives, wheezing, faintness, or itching. If symptoms of allergy occur, stop the medication and call the doctor. LEVOFLOXACIN: You have been given an antibacterial agent, levofloxacin (Levaquin). This medicine is not related to the penicillins, sulfas, cephalosporins, or tetracyclines. It is often given to patients who are allergic to these drugs. It has been chosen for you either because other drugs are not appropriate, or because of the nature of your problem. Levaquin should not be taken with antacids, as these can decrease its effectiveness. It can be taken without regard to meals. LEVAQUIN SHOULD NOT BE TAKEN BY CHILDREN, NURSING WOMEN, OR WOMEN. Although Levaquin is usually well-tolerated, common side effects can include nausea and diarrhea. Contact your doctor if you experience any unusual symptoms while on this medication, such as joint pain or swelling, shortness of breath, wheezing, faintness, or hives. CIPROFLOXACIN: You have been given an antibacterial agent, ciprofloxacin (Cipro). This medicine is not related to the penicillins, sulfas, cephalosporins, or tetracyclines. It is often given to patients who are allergic to these drugs. It has been chosen for you either because other drugs are not appropriate, or because of the nature of your problem. Cipro should not be taken with antacids, as these can decrease its effectiveness. It can be taken without regard to meals. CIPRO SHOULD NOT BE TAKEN BY CHILDREN, NURSING WOMEN, OR WOMEN. Although Cipro is usually well-tolerated, common side effects can include nausea and diarrhea. Contact your doctor if you experience any unusual symptoms while on this medication, such as joint pain or swelling, shortness of breath, wheezing, faintness, or hives. FOLLOW-UP CARE: If you have been referred to a physician for follow-up care, call the physicians office for an appointment as you were instructed or within the next two days. If you experience worsening or a significant change in your symptoms, notify the physician immediately or return to the Emergency Department at any time for re-evaluation. Home and rest. Medication as prescribed. As we discussed if you get home and you are unable to make it or you start vomiting or spike a fever increased pain with this uncontrollable return to ER for recheck. Avoid a diet high in sugar. I am giving the name of the medical group here in town the [facility] they work with you as far as medical treatment goes if you have insurance they accept some of those if you do not have insurance they will work on a graduated scale and if you have absolutely no money they will treat you for free. For the medications you please use your prescription card which [facility] is probably 1 of the better ones. Again return here for any concerns or problems. Prescriptions: Ciprofloxacin HCl [Cipro 500 mg Tablet] 500 mg PO BID 10 Days #20 tablet Hydrocodone/Acetaminophen [[place] 7.5-325 mg Tablet] 1 tab PO Q4 PRN #15 tablet PRN Reason: Ondansetron HCl [Zofran 4 mg Tablet] 1 - 2 tab PO Q4H PRN #10 tablet PRN Reason: Phenazopyridine HCl [Pyridium 200 mg Tablet] 200 mg PO TID #6 tablet Forms: Smoking Cessation Education Referrals: [facility] [NO LOCAL MD] - Follow up as needed
--- NOTE | 2018-05-23 19:07 | RADIOLOGY REPORT (SQ) ---
EXAM DESCRIPTION: CT ABD/PELVIS NO ORAL OR IV COMPLETED DATE/TIME: 05/23/2018 6:57 pm REASON FOR STUDY: ? Pyelonephritis COMPARISON: 09/08/2013 TECHNIQUE: CT scan of the abdomen and pelvis performed without intravenous or oral contrast. Images reviewed with lung, soft tissue, and bone windows. Reconstructed coronal and sagittal MPR images revi ewed. All images stored on PACS. All CT scanners at this facility use dose modulation, iterative reconstruction, and/or weight based d osing when appropriate to reduce radiation dose to as low as reasonably achievable (ALARA). [facility]: Dose Right [facility]: CareDose [facility]: Dose Right [facility]: Teradose 4D [facility]: Smart UIEvolution RADIATION DOSE: CT Rad equipment meets quality standard of care and radiation dose reduction techniq ues were employed. CTDIvol: 4.8 mGy. DLP: 252 mGy-cm.mGy. LIMITATIONS: Paucity of abdominal fat FINDINGS: LOWER CHEST: No significant findings. No nodules or infiltrates. NON-CONTRASTED LIVER, SPLEEN, ADRENALS: Evaluation limited by lack of IV contrast. No identified sign ificant masses. PANCREAS: No masses. No peripancreatic inflammatory changes. GALLBLADDER: No identified stones by CT criteria. No inflammatory changes to suggest cholecystitis. RIGHT KIDNEY AND URETER: No suspicious masses. Assessment limited by lack of IV contrast. No signif icant calcifications. No hydronephrosis or hydroureter. LEFT KIDNEY AND URETER: No suspicious masses. Assessment limited by lack of IV contrast. No signifi cant calcifications. No hydronephrosis or hydroureter. AORTA AND RETROPERITONEUM: No aneurysm. No retroperitoneal masses or adenopathy. BOWEL AND PERITONEAL CAVITY: No obvious masses or inflammatory changes. No free fluid. APPENDIX: Normal. PELVIS, BLADDER, AND ABDOMINAL WALL:No abnormal masses. No free fluid. Bladder normal. BONES: No significant findings. OTHER: No other significant finding. IMPRESSION: NO SIGNIFICANT OR ACUTE PROCESS IN THE ABDOMEN OR PELVIS. COMMENT: Quality ID # [id number]: Final reports with documentation of one or more dose reduction techniques (e.g., Automated exposure control, adjustment of the mA and/or kV according to patient size, use of iterative reconstruction technique) TECHNICAL DOCUMENTATION: JOB ID: [id number] [employer]- All Rights Reserved Reading location - IP/workstation name: [email or web address]
[2018-05-23] MEDS ORDERED: FLUCONAZOLE 100 MG TABLET PO ONE (21:07)
[2018-05-23 22:06] VITALS: BP 140/77
== END 2018-05-23 22:06 | disposition home or self-care (01) ==
LOC: ER 13:31
DX: N30.01 Acute cystitis with hematuria (principal); R10.84 Generalized abdominal pain; R11.0 Nausea; I10 Essential (primary) hypertension; E11.9 Type 2 diabetes mellitus without complications; F17.210 Nicotine dependence, cigarettes, uncomplicated; Z88.1 Allergy status to other antibiotic agents; Z88.5 Allergy status to narcotic agent; Z88.8 Allergy status to other drugs, medicaments and biological substances; Z88.2 Allergy status to sulfonamides; Z88.6 Allergy status to analgesic agent
CPT/HCPCS: 96376; 99284; 96375; 96365; 96366; 36415; 87040; 87086; 85025; 81025; 87077; 87088; 80053; 81001; 87186; 83605; 74176; J1170; J3490; J2405; J7030; J1956

== ENCOUNTER 2018-05-25 14:10 | Emergency (ER) | payer SELFPAY ==
[2018-05-25] MEDS ORDERED: NORMAL SALINE 1000 ML 1,000 ML IV ONE (15:11)
[2018-05-25] MEDS ORDERED: ONDANSETRON HCL INJ/PF 4 MG/2 ML SDV IV ONE ×2 (15:12→19:24)
[2018-05-25] MEDS ORDERED: HYDROMORPHONE HCL INJ/PF 2 MG/ML AMPULE IV ONE ×2 (15:12→19:24)
--- NOTE | 2018-05-25 15:13 | ER Document Report ---
ED Medical Screen (RME) - General Chief Complaint: Urinary Frequency Stated Complaint: URINARY ISSUES Time Seen by Provider: 05/25/18 15:00 Notes: Patient is a 43-year-old female that presents to the emergency department for chief complaint of suprapubic pain, dysuria. Patient was seen in the emergency department 2 nights ago, was diagnosed with a urinary tract infection, had a market leukocytosis at that time, there was consideration for admission, however the patient did not want to stay it seemed, but her pain persisted, she was discharged on Cipro and Pyridium, usually her symptoms improved, she has a history of frequent UTIs, however her symptoms did not get any better and may be worse today so she came back to the ED.. ROS: Other than noted above, the 12 point review of systems was reviewed with the patient and were negative, all pertinent findings are included in the HPI. PHYSICAL EXAMINATION: Vital signs reviewed. GENERAL: Patient appears rather uncomfortable, leaning over, holding her abdomen. HEAD: Atraumatic, normocephalic. EYES: Pupils equal round extraocular movements intact, conjunctiva are normal. ENT: Nares patent NECK: Normal range of motion CV: Heart regular rate and rhythm LUNGS: No respiratory distress Musculoskeletal: Normal range of motion NEUROLOGICAL: Normal speech PSYCH: Normal mood, normal affect. MDM: Patient seen and examined for rapid initial assessment. Vital signs reviewed. A comprehensive ED assessment and evaluation of the patient, analysis of test results and completion of the medical decision making process will be conducted by additional ED providers. *Note is created using voice recognition software and may contain spelling, syntax or grammatical errors. TRAVEL OUTSIDE OF THE [place] IN LAST 30 DAYS: No - Related Data Allergies/Adverse Reactions: ceftriaxone sodium [From Rocephin] Allergy (Verified 05/25/18 14:14) hydrocodone Allergy (Verified 05/25/18 14:14) meperidine HCl [From Demerol] Allergy (Verified 05/25/18 14:14) naproxen Allergy (Verified 05/25/18 14:14) phenazopyridine [From Pyridium] Allergy (Verified 05/25/18 14:14) promethazine HCl [From Phenergan] Allergy (Verified 05/25/18 14:14) Sulfa (Sulfonamide Antibiotics) Allergy (Verified 05/25/18 14:14) tramadol Allergy (Verified 05/25/18 14:14) Past Medical History - Past Medical History Cardiac Medical History: Reports: Hx Hypertension Neurological Medical History: Reports: Hx Migraine Endocrine Medical History: Reports: Hx Diabetes Mellitus Type 2 - Diet- controlled diabetes Renal/ Medical History: Denies: Hx Peritoneal Dialysis GI Medical History: Reports: Hx Gastroesophageal Reflux Disease Musculoskeltal Medical History: Reports Hx Arthritis, Reports Hx Musculoskeletal Deformity, Reports Hx Musculoskeletal Trauma Psychiatric Medical History: Reports: Hx Anxiety, Hx Depression Traumatic Medical History: Reports: Hx Fractures - Toe Past Surgical History: Reports: Hx Adenoidectomy, Hx Dilation and Curettage, Hx Genitourinary Surgery - D&C, Hx Hysterectomy, Hx Tonsillectomy - adnoids removed, tubes in ears - Immunizations Immunizations up to date: Yes Hx Diphtheria, Pertussis, Tetanus Vaccination: Yes Physical Exam - Vital signs Vitals: Temp Pulse Resp BP Pulse Ox 98.0 F 83 16 129/89 H 96 05/25/18 14:46 05/25/18 14:46 05/25/18 14:46 05/25/18 14:46 05/25/18 14:46 Course - Vital Signs Vital signs: Temp Pulse Resp BP Pulse Ox 98.0 F 83 16 129/89 H 96 05/25/18 14:46 05/25/18 14:46 05/25/18 14:46 05/25/18 14:46 05/25/18 14:46
[2018-05-25 15:23] LABS: AMORPHOUS SEDIMENT,URINE TRACE /HPF; APPEARANCE,URINE CLOUDY; BILIRUBIN,URINE NEGATIVE (NEGATIVE); GLUCOSE, URINE NEGATIVE (NEGATIVE); KETONES,URINE NEGATIVE (NEGATIVE); LEUKOCYTE ESTERASE,URINE NEGATIVE (NEGATIVE); NITRITE,URINE POSITIVE (NEGATIVE); PROTEIN,URINE NEGATIVE (NEGATIVE); URINE SPECIFIC GRAVITY 1.009
[2018-05-25 15:25] LABS: COLOR,URINE YELLOW
[2018-05-25 16:18] LABS: ABSOLUTE BASOPHILS # (AUTO) 0.1 10^3/uL (0.0-0.2); ABSOLUTE EOSINOPHILS # (AUTO) 0.1 10^3/uL (0.0-0.6); ABSOLUTE MONOCYTES (AUTO) 0.7 10^3/uL (0.1-1.4); ABSOLUTE NEUT (AUTO) 8.3 10^3/uL (1.7-8.2); BASOPHILS % (AUTO) 0.5 % (0-2); EOSINOPHILS % (AUTO) 0.8 % (0-6); HEMATOCRIT 42.2 % (36.0-47.0); HEMOGLOBIN 14.5 g/dL (12.0-15.5); MEAN CORPUSCULAR HEMOGLOBIN 32.2 pg (27.0-33.4); MEAN CORPUSCULAR HGB CONC 34.3 g/dL (32.0-36.0); MEAN CORPUSCULAR VOLUME 94 fl (80-97); MONOCYTES % (AUTO) 6.1 % (3-13); PLATELET COUNT 473 10^3/uL (150-450); SEGMENTED NEUTROPHILS % (AUTO) 67.6 % (42-78); TOTAL CELLS COUNTED % (AUTO) 100 %; WHITE BLOOD COUNT 12.2 10^3/uL (4.0-10.5)
[2018-05-25 16:35] LABS: ALANINE AMINOTRANSFERASE 15 U/L (9-52); ALBUMIN 4.3 g/dL (3.5-5.0); ALKALINE PHOSPHATASE 78 U/L (38-126); ANION GAP 8 (5-19); ASPARTATE AMINO TRANSFERASE 22 U/L (14-36); BILIRUBIN,DIRECT 0.2 mg/dL (0.0-0.4); BILIRUBIN,TOTAL 0.5 mg/dL (0.2-1.3); BLOOD UREA NITROGEN 12 mg/dL (7-20); CALCIUM 10.6 mg/dL (8.4-10.2); CARBON DIOXIDE 33 mmol/L (22-30); CHLORIDE 99 mmol/L (98-107); GLUCOSE 97 mg/dL (75-110); POTASSIUM 4.9 mmol/L (3.6-5.0); SODIUM 140.2 mmol/L (137-145); TOTAL PROTEIN 7.5 g/dL (6.3-8.2)
[2018-05-25 17:22] LABS: INTERNATIONAL RATION (INR) 0.97; PROTHROMBIN TIME 13.3 SEC (11.4-15.4)
[2018-05-25] MEDS ORDERED: GENTAMICIN SULFATE INJ 80 MG/2 ML VIAL IM STA (19:12)
[2018-05-25] MEDS ORDERED: DOXYCYCLINE HYCLATE 100 MG TABLET PO ONE (19:27)
[2018-05-25] MEDS ORDERED: LORAZEPAM INJ 2 MG/1 ML VIAL IV ONE (19:27)
--- NOTE | 2018-05-25 20:15 | ER Document Report ---
HPI - HPI Time Seen by Provider: 05/25/18 15:00 Onset: Other - 3 days ago Onset/Duration: Sudden, Waxing and waning, Worse Quality of pain: Sharp, Stabbing, Throbbing Severity: Severe Pain Level: 4 Context: Patient is a well-nourished well-developed 43-year-old female who returns to ER after being seen about 2 days ago for same complaint. She complains of suprapubic tenderness and dysuria with increased in urgency frequency all of the urinary tract symptoms. I was the one originally saw patient and did the entire workup on her and it came back only with a urinary tract infection. She has a history of chronic UTIs and states the only thing that works for her Cipro. I gave her Levaquin here because she has multiple allergies to antibiotics and she insisted to go home on Cipro. I sent her home with Cipro 500 twice daily with pain medication with, with nausea medication, with Diflucan. Patient has not gotten any better and came back today because the pain and discomfort is getting worse. Exacerbated by: Denies Relieved by: Denies Similar symptoms previously: Yes Recently seen / treated by doctor: Yes - ROS ROS below otherwise negative: Yes Systems Reviewed and Negative: Yes All other systems reviewed and negative - CONSTITUTIONAL Constitutional: DENIES: Fever - NEURO Neurology: DENIES: Weakness - CARDIOVASCULAR Cardiovascular: DENIES: Chest pain - RESPIRATORY Respiratory: DENIES: Trouble Breathing, Coughing - GASTROINTESTINAL Gastrointestinal: DENIES: Abdominal Pain, Nausea - URINARY Urinary: REPORTS: Dysuria, Urgency, Frequency Notes: Moderate tenderness to palpation of the suprapubic area. No pain ao palpation o f the abdomen. Bowel sounds are present in all four quads. - REPRODUCTIVE Reproductive: DENIES: : - MUSCULOSKELETAL Musculoskeletal: REPORTS: Back Pain. DENIES: Extremity pain - DERM Skin Color: Normal, [place] Skin Problems: None Past Medical History - General Information source: Patient - Social History Smoking Status: Current Every Day Smoker Cigarette use (# per day): Yes - half pack a day Chew tobacco use (# tins/day): No Smoking Education Provided: Yes Frequency of alcohol use: Rare Drug Abuse: None Lives with: Alone Family History: Reviewed & Not Pertinent, Arthritis, CAD, COPD, CVA, DM, Hyperlipidemia, Hypertension, Malignancy Patient has suicidal ideation: No Patient has homicidal ideation: No - Past Medical History Cardiac Medical History: Reports: Hx Hypertension Neurological Medical History: Reports: Hx Migraine Endocrine Medical History: Reports: Hx Diabetes Mellitus Type 2 - Diet- controlled diabetes Renal/ Medical History: Denies: Hx Peritoneal Dialysis GI Medical History: Reports: Hx Gastroesophageal Reflux Disease Musculoskeletal Medical History: Reports Hx Arthritis, Reports Hx Musculoskeletal Deformity, Reports Hx Musculoskeletal Trauma Psychiatric Medical History: Reports: Hx Anxiety, Hx Depression Traumatic Medical History: Reports: Hx Fractures - Toe Past Surgical History: Reports: Hx Adenoidectomy, Hx Dilation and Curettage, Hx Genitourinary Surgery - D&C, Hx Hysterectomy, Hx Tonsillectomy - adnoids removed, tubes in ears - Immunizations Immunizations up to date: Yes Hx Diphtheria, Pertussis, Tetanus Vaccination: Yes Vertical Provider Document - CONSTITUTIONAL Agree With Documented VS: Yes Exam Limitations: No Limitations General Appearance: WD/WN, No Apparent Distress, Thin Notes: Patient is in obvious discomfort. holding her supra pubic region at all times. - INFECTION CONTROL TRAVEL OUTSIDE OF THE [place] IN LAST 30 DAYS: No - HEENT HEENT: Atraumatic - NECK Neck: Normal Inspection, Supple - RESPIRATORY Respiratory: Breath Sounds Normal, No Respiratory Distress - CARDIOVASCULAR Cardiovascular: Regular Rate, Regular Rhythm, No Murmur - GI/ABDOMEN Gastrointestinal: Abdomen Soft, Abdomen Non-Tender - BACK Back: CVA Tenderness-Right, CVA Tenderness-Left - MUSCULOSKELETAL/EXTREMETIES Musculoskeletal/Extremeties: FROM, Non-Tender, No Edema - NEURO Level of Consciousness: Awake, Alert, Appropriate Motor/Sensory: No Motor Deficit, No Sensory Deficit, No Pronator Drift Deep Tendon Reflexes: 2+ - DERM Integumentary: Warm, Dry, No Rash Course - Re-evaluation Re-evalutation: 05/25/18 20:13 Patient course of stay in ER has been uneventful again. Her culture has not returned yet on her here and I did not 2 days ago. Does come back with positive for E. coli. However patient's symptoms have worsened and her pain is increasing. The urine this time showed positive nitrites that it did not show the last time. But her white count went from 22,002 days ago down to 12,000 today. Given these findings Dr. Stevenson/Tristin feels that we are still safe to send the patient home with placing her on a different type antibiotic. Since patient has allergies to the cephalosporins we will place her on doxycycline. I will again write her for some pain medication really do the Pyridium and hopefully this time patient will get better since she probably not resistant to the medication. I have discussed with the patient she is in favor of doing this for 1 more time. I have had her informed that she will return to ER if she has any concerns or problems. I did go up and talk to Dr. Tristin Stevenson and explained to him why I was using gentamicin injection in the buttocks. My only knowledge of the usefulness of this is from a urologist that worked with years ago and he had this as 1 of his standard orders any time patients can remain with a known history of chronic urinary tract infections he had us give them a one-time dose of 80 mg of gentamicin in the buttocks and pelvis the the release method of this really worked well for urinary tract infections were chronic. I do not have any literature to support this matter but given patient's strong history of that and and allergies to antibiotics I feel there was well worth a try and I explained this to him and he agreed to give it a try. 05/25/18 20:26 - Vital Signs Vital signs: Temp Pulse Resp BP Pulse Ox 98.0 F 83 16 129/89 H 96 05/25/18 14:46 05/25/18 14:46 05/25/18 14:46 05/25/18 14:46 05/25/18 14:46 - Laboratory Result Diagrams: 05/25/18 15:53 05/25/18 15:53 Laboratory results interpreted by me: 05/25/18 05/25/18 05/25/18 15:00 15:53 15:53 WBC 12.2 H Plt Count 473 H Absolute Neutrophils 8.3 H Carbon Dioxide 33 H Calcium 10.6 H Urine Nitrite POSITIVE H Urine Urobilinogen 2.0 H Discharge - Discharge Clinical Impression: Urinary tract infection Qualifiers: Urinary tract infection type: acute cystitis Hematuria presence: with hematuria Qualified Code(s): N30.01 - Acute cystitis with hematuria Condition: Stable Disposition: HOME, SELF-CARE Instructions: Doxycycline ([facility]), Urinary Anesthetic Agent ([facility]) Additional Instructions: URINARY TRACT INFECTION: Your evaluation indicates that you have a urinary tract infection. This is due to germs growing in the bladder. This is a common problem. This infection usually responds quickly to antibiotics. Your antibiotic should be taken exactly as prescribed. Drink plenty of fluids -- three to four quarts a day. Occasionally, a bladder anesthetic will be prescribed to help stop the feeling of urgency until the antibiotic has a chance to clear the infection. This may cause your urine to be dark orange. Certain urine infections require a culture. If the doctor obtained a culture, the results will be back in two days. You should call to see if a change in treatment is needed. A repeat urinalysis after you finish treatment is often recommended. The physician will let you know if further testing is required. Call the doctor if you develop fever, chills, flank pain, inability to urinate, or blood in the urine. ANTIBIOTIC THERAPY: You have been given an antibiotic prescription. It's important that you take all the medication, unless instructed otherwise by your physician. Failure to complete the entire course can result in relapse of your condition. Common side effects of antibiotics include nausea, intestinal cramping, or diarrhea. Women may develop vaginal yeast infections, and babies can get yeast (thrush) in the mouth following the use of antibiotics. Contact your physician if you develop significant side effects from this medication. Allergy to this antibiotic can result in hives, wheezing, faintness, or itching. If symptoms of allergy occur, stop the medication and call the doctor. URINARY ANESTHETIC AGENT: You have been given a medication (Pyridium) for urinary tract discomfort. This medicine numbs the lining of the bladder and urethra, resulting in less pain, burning, and urgency. You may take it as needed, according to instructions. When the symptoms resolve, you can stop this medication (be sure to continue any other medications the doctor has given you). This medicine turns the urine a dark orange. It may stain underwear. Occasionally, it can cause nausea. Return for evaluation if there are any unexpected effects, such as itching, hives, or shortness of breath. FOLLOW-UP CARE: If you have been referred to a physician for follow-up care, call the [facility] office for an appointment as you were instructed or within the next two days. If you experience worsening or a significant change in your symptoms, notify the physician immediately or return to the Emergency Department at any time for re-evaluation. Doxycycline: We will place you on doxycycline which is a different form of antibiotic. Please take all the medication as prescribed. If you are not progressively getting better within 48 hours return to ER for recheck. Continue with all your other current medications. Increase your fluid intake. Avoid foods high in sugar or sodas. Prescriptions: Ondansetron [Zofran Odt 4 mg Tablet] 1 - 2 tab PO Q4HP PRN #10 tab.rapdis PRN Reason: Doxycycline Hyclate 100 mg PO BID #20 capsule Lorazepam [Ativan 0.5 mg Tablet] 0.5 mg PO Q4 PRN #10 tab PRN Reason: Oxybutynin Chloride [Ditropan 5 mg Tablet] 5 mg PO TID #21 tablet Oxycodone HCl/Acetaminophen [Percocet 5-325 mg Tablet] 1 tab PO Q4H PRN #15 tablet PRN Reason: Referrals: [facility] [NO LOCAL MD] - Follow up as needed
--- NOTE | 2018-05-25 20:33 | EKG REPORT ---
SEVERITY:- ABNORMAL ECG - SINUS RHYTHM RIGHT ATRIAL ABNORMALITY : Confirmed by: Gregorio Austin 25-May-2018 20:32:26
[2018-05-25 20:39] VITALS: BP 95/69
== END 2018-05-25 20:39 | disposition home or self-care (01) ==
LOC: ER 14:10
DX: N30.01 Acute cystitis with hematuria (principal); R10.30 Lower abdominal pain, unspecified; R30.0 Dysuria; R35.0 Frequency of micturition; Z79.899 Other long term (current) drug therapy; F17.210 Nicotine dependence, cigarettes, uncomplicated; I10 Essential (primary) hypertension; E11.9 Type 2 diabetes mellitus without complications
CPT/HCPCS: 93005; 96376; 99284; 96372; 96361; 96374; 96375; 36415; 87040; 87086; 82962; 85025; 85610; 80053; 81001; 83605; 93010; J1580; J1170; J2060; J2405; J7030

== ENCOUNTER 2018-06-25 11:01 | Emergency (ER) | payer SELFPAY ==
[2018-06-25 11:06] VITALS: BP 116/91
[2018-06-25] MEDS ORDERED: KETOROLAC TROMETHAMINE INJ/PF 30 MG/1 ML SDV IM ONE (11:45)
[2018-06-25] MEDS ORDERED: DEXAMETHASONE SOD PHOS INJ 10 MG/1 ML VIAL IM ONE (11:45)
[2018-06-25] MEDS ORDERED: LIDOCAINE 5% (700 MG) TRANSDERMAL ADH..PATCH TP ONE (11:45)
[2018-06-25] MEDS ORDERED: ONDANSETRON 4 MG TAB.RAPDIS PO ONE (11:47)
--- NOTE | 2018-06-25 11:51 | ER Document Report ---
Addendum entered and electronically signed by RITA OROZCO PA-C 06/25/18 11:56: Discharge - Discharge Clinical Impression: Strain of right trapezius muscle Qualifiers: Encounter type: initial encounter Qualified Code(s): S46.811A - Strain of other muscles, fascia and tendons at shoulder and upper arm level, right arm, initial encounter Condition: Stable Disposition: HOME, SELF-CARE Instructions: Muscle Relaxers ([facility]), Muscle Strain ([facility]) Additional Instructions: Rest, Ice, Compression Use sling as directed Moist heat and massage Range of motion exercises as reviewed Tylenol as needed F/u with your PCP in 3-5 days for a recheck Call orthopedics tomorrow to schedule an appointment for further evaluation and management Return to the ED with any worsening symptoms and/or development of fever, headache, chest pain, palpitations, syncope, shortness of breath, trouble breathing, abdominal pain, n/v/d, muscle weakness/paralysis, numbness/tingling, swelling, redness, or other worsening symptoms that are concerning to you. Prescriptions: Baclofen [Baclofen 10 mg Tablet] 5 - 10 mg PO BID PRN #6 tablet PRN Reason: Lidocaine [Lidoderm 5% (700 mg) Transdermal Patch] 1 patch TP DAILY #10 adh..patch Ondansetron [Zofran Odt 4 mg Tablet] 1 - 2 tab PO Q4H PRN #15 tab.rapdis PRN Reason: For Nausea/Vomiting Forms: Elevated Blood Pressure Referrals: [facility] [Provider Group] - Follow up in 3-5 days Original Note: HPI - HPI Time Seen by Provider: 06/25/18 11:39 Pain Level: 5 Notes: Patient is a 43-year-old female with a history of rheumatoid arthritis and multiple other issues who presents to the emergency department complaining of her right shoulder/lateral neck pain status post injury 4 days ago. Patient states that she was lifting heavy compressors and metal objects when she felt something pull in between her neck and her shoulder on the right side. Patient states that she has had spasming and a burning sensation in that area since. Patient states that the burning sensation will occasionally radiate into her right upper extremity. Despite conservative measures, her pain has been per sistent so she came to the emergency department. She has been eating and drinking without difficulty, but does have occasional nausea because of the pain. She is urinating normally and having normal bowel movements. Denies any headache, fever, head injury, changes in vision/speech/mentation/hearing, URI, sore throat, chest pain, palpitations, syncope, cough, shortness of breath, wheeze, dyspnea, abdominal pain, nausea/vomiting/diarrhea, urinary retention, dysuria, hematuria, loss of control of bowel or bladder, numbness/tingling, saddle anesthesia, muscle paralysis/weakness, or rash. - ROS Systems Reviewed and Negative: Yes All other systems reviewed and negative - REPRODUCTIVE Reproductive: DENIES: : Past Medical History - Social History Smoking Status: Unknown if Ever Smoked Family History: Reviewed & Not Pertinent, Arthritis, CAD, COPD, CVA, DM, Hyperlipidemia, Hypertension, Malignancy - Past Medical History Cardiac Medical History: Reports: Hx Hypertension Neurological Medical History: Reports: Hx Migraine Endocrine Medical History: Reports: Hx Diabetes Mellitus Type 2 - Diet- controlled diabetes Renal/ Medical History: Denies: Hx Peritoneal Dialysis GI Medical History: Reports: Hx Gastroesophageal Reflux Disease Musculoskeletal Medical History: Reports Hx Arthritis, Reports Hx Musculoskeletal Deformity, Reports Hx Musculoskeletal Trauma Psychiatric Medical History: Reports: Hx Anxiety, Hx Depression Traumatic Medical History: Reports: Hx Fractures - Toe Past Surgical History: Reports: Hx Adenoidectomy, Hx Dilation and Curettage, Hx Genitourinary Surgery - D&C, Hx Hysterectomy, Hx Tonsillectomy - adnoids removed, tubes in ears - Immunizations Immunizations up to date: Yes Hx Diphtheria, Pertussis, Tetanus Vaccination: Yes Vertical Provider Document - CONSTITUTIONAL Agree With Documented VS: Yes Notes: PHYSICAL EXAMINATION: GENERAL: Well-appearing, well-nourished and in no acute distress. NECK: Normal range of motion, supple without lymphadenopathy. Non-tender. Spurling negative. No rigidity/meningismus. LUNGS: Breath sounds clear to auscultation bilaterally and equal. No wheezes rales or rhonchi. HEART: Regular rate and rhythm without murmurs, rubs, gallops. Musculoskeletal: Rt shoulder: FROM to passive/active. Strength 4+/5 due to pain. Neg speed test. No crepitus. No erythema or warmth. No deformity or ecchymosis. RC intact 5+/5 strength. + tenderness and trigger point to the rt trapezus muscle, correlates with pain described. Extremities: No cyanosis, clubbing, or edema b/l. Peripheral pulses 2+. Capillary refill less than 3 seconds. NEUROLOGICAL: Normal speech, normal gait. Normal sensory, motor exams PSYCH: Normal mood, normal affect. SKIN: Warm, Dry, normal turgor, no rashes or lesions noted. - INFECTION CONTROL TRAVEL OUTSIDE OF THE [place] IN LAST 30 DAYS: No Course - Re-evaluation Re-evalutation: 06/25/18 11:48 Patient is an afebrile, well-hydrated, 43-year-old female who presents to the ED with right trapezius muscle pain which I suspect to be a sprain versus strain. Vitals are acceptable without any significant tachycardia, tachypnea, or hypoxia. PE is otherwise unremarkable for any neurovascular compromise, obvious tendon/ligament rupture, obvious fracture/dislocation, septic joint. I reviewed imaging with the patient which she declines at this time. Sling provided today. Patient was also given Toradol, Decadron, and a Lidoderm patch. She was given Zofran for her nausea. Patient is nontoxic-appearing. No other labs or imaging warranted at this time based on H&P. Rx for baclofen. Conservative measures otherwise for symptoms. Recheck with your PCM in 3-5 days. Schedule a consult with orthopedics. Return to the ED with any worsening/concerning symptoms otherwise as reviewed in discharge. Patient is in agreement. - Vital Signs Vital signs: Temp Pulse Resp BP Pulse Ox 98.0 F 88 20 116/91 H 100 06/25/18 11:05 06/25/18 11:05 06/25/18 11:05 06/25/18 11:05 06/25/18 11:05 Discharge - Discharge Clinical Impression: Strain of right trapezius muscle Qualifiers: Encounter type: initial encounter Qualified Code(s): S46.811A - Strain of other muscles, fascia and tendons at shoulder and upper arm level, right arm, initial encounter Condition: Stable Disposition: HOME, SELF-CARE Instructions: Muscle Relaxers ([facility]), Muscle Strain ([facility]) Additional Instructions: Rest, Ice, Compression Use sling as directed Moist heat and massage Range of motion exercises as reviewed Tylenol as needed F/u with your PCP in 3-5 days for a recheck Call orthopedics tomorrow to schedule an appointment for further evaluation and management Return to the ED with any worsening symptoms and/or development of fever, headache, chest pain, palpitations, syncope, shortness of breath, trouble breathing, abdominal pain, n/v/d, muscle weakness/paralysis, numbness/tingling, swelling, redness, or other worsening symptoms that are concerning to you. Prescriptions: Baclofen [Baclofen 10 mg Tablet] 5 - 10 mg PO BID PRN #6 tablet PRN Reason: Lidocaine [Lidoderm 5% (700 mg) Transdermal Patch] 1 patch TP DAILY #10 adh..patch Forms: Elevated Blood Pressure Referrals: [facility] [Provider Group] - Follow up in 3-5 days
== END 2018-06-25 11:58 | disposition home or self-care (01) ==
LOC: ER 11:01
DX: S46.811A Strain of other muscles, fascia and tendons at shoulder and upper arm level, right arm, initial encounter (principal); X50.0XXA Overexertion from strenuous movement or load, initial encounter; I10 Essential (primary) hypertension; E11.9 Type 2 diabetes mellitus without complications; Z90.710 Acquired absence of both cervix and uterus
CPT/HCPCS: 99283; 96372; S0119; J1885; J1100

== ENCOUNTER 2018-08-07 13:46 | Emergency (ER) | payer SELFPAY ==
[2018-08-07 14:16] VITALS: BP 147/75
--- NOTE | 2018-08-07 14:25 | ER Document Report ---
HPI - HPI Patient complains to provider of: Dysuria Time Seen by Provider: 08/07/18 14:23 Onset: Other Onset/Duration: Persistent Quality of pain: Burning Severity: Severe Pain Level: 4 Context: Patient presents emergency department with complaints of pain with void that started on this past Sunday. She also reports that last night she started having back pain and spasms in her bladder. She reports history of UTIs since she was a child. She reports she was under the care of a urologist but lost her insurance and she is no longer under his care. She denies fever vomiting reports some nausea denies diarrhea except she did have a loose stool earlier today. Denies vaginal discharge. 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 He swears that she follows all the advice such as not wearing colored underwear cleaning after sex but she does not drink enough water. Patient is extremely anxious. Associated Symptoms: None. denies: Fever Exacerbated by: Other - void Relieved by: Denies Similar symptoms previously: Yes Recently seen / treated by doctor: No - REPRODUCTIVE Reproductive: DENIES: : Past Medical History - General Information source: Patient Last Menstrual Period: partial hyst - Social History Smoking Status: Current Every Day Smoker Cigarette use (# per day): Yes Frequency of alcohol use: None Drug Abuse: None Lives with: Family Family History: Reviewed & Not Pertinent, Arthritis, CAD, COPD, CVA, DM, Hyperlipidemia, Hypertension, Malignancy Patient has suicidal ideation: No Patient has homicidal ideation: No - Past Medical History Cardiac Medical History: Reports: Hx Hypertension Neurological Medical History: Reports: Hx Migraine Endocrine Medical History: Reports: Hx Diabetes Mellitus Type 2 - Diet- controlled diabetes Renal/ Medical History: Reports: Other - frequent UTI. Denies: Hx Peritoneal Dialysis GI Medical History: Reports: Hx Gastroesophageal Reflux Disease Musculoskeletal Medical History: Reports Hx Arthritis, Reports Hx Musculoskeletal Deformity, Reports Hx Musculoskeletal Trauma Psychiatric Medical History: Reports: Hx Anxiety, Hx Depression Traumatic Medical History: Reports: Hx Fractures - Toe Past Surgical History: Reports: Hx Adenoidectomy, Hx Dilation and Curettage, Hx Genitourinary Surgery - D&C, Hx Hysterectomy, Hx Tonsillectomy - adnoids removed, tubes in ears - Immunizations Immunizations up to date: Yes Hx Diphtheria, Pertussis, Tetanus Vaccination: Yes Vertical Provider Document - CONSTITUTIONAL Agree With Documented VS: Yes Exam Limitations: No Limitations General Appearance: WD/WN, No Apparent Distress - ANXIOUS - INFECTION CONTROL TRAVEL OUTSIDE OF THE [place] IN LAST 30 DAYS: No - HEENT HEENT: Atraumatic, Normocephalic - NECK Neck: Supple - RESPIRATORY Respiratory: No Respiratory Distress - CARDIOVASCULAR Cardiovascular: Regular Rate - GI/ABDOMEN Gastrointestinal: Abdomen Soft, Abdomen Tender - PT REPORTS SPASMS - BACK Back: CVA Tenderness-Right, CVA Tenderness-Left - MUSCULOSKELETAL/EXTREMETIES Musculoskeletal/Extremeties: DOUGLAS FROM - NEURO Level of Consciousness: Awake, Alert, Appropriate Motor/Sensory: No Motor Deficit - DERM Integumentary: Warm, Dry Course - Re-evaluation Re-evalutation: 08/07/18 15:06 Urinalysis is unremarkable in fact it looks pretty good. Patient was instructed on this. She declined further evaluation such as blood work, renal US. She is opted to have a prescription for Pyridium and she will come back if her symptoms are worse. She was instructed to monitor her temperature return for worsening back pain stomach pain. She verbalized understanding to all instructions. Dictation of this chart was performed using voice recognition software; therefore, there may be some unintended grammatical errors. - Vital Signs Vital signs: Temp Pulse Resp BP Pulse Ox 97.8 F 74 21 H 147/75 H 100 08/07/18 14:15 08/07/18 14:15 08/07/18 14:15 08/07/18 14:15 08/07/18 14:15 Discharge - Discharge Clinical Impression: Dysuria Condition: Stable Disposition: HOME, SELF-CARE Instructions: Urinary Anesthetic Agent ([facility]) Additional Instructions: *You have been evaluated for pain while voiding *A Urine culture is pending. You will be contacted should we need to order an antibiotic *Take medication as prescribed *Push fluids *Follow up with your primary care provider within one week *Plan urine recheck in one week *Return to ED for worsening condition, changes, needs Prescriptions: Phenazopyridine HCl [Pyridium 200 mg Tablet] 200 mg PO TID #15 tablet Forms: Return to School
[2018-08-07] MEDS ORDERED: PHENAZOPYRIDINE HCL 200 MG TABLET PO ONE (14:39)
[2018-08-07 14:40] LABS: APPEARANCE,URINE CLEAR; BILIRUBIN,URINE NEGATIVE (NEGATIVE); COLOR,URINE YELLOW; GLUCOSE, URINE NEGATIVE (NEGATIVE); KETONES,URINE NEGATIVE (NEGATIVE); LEUKOCYTE ESTERASE,URINE NEGATIVE (NEGATIVE); NITRITE,URINE NEGATIVE (NEGATIVE); PROTEIN,URINE 30 mg/dL (NEGATIVE); URINE SPECIFIC GRAVITY 1.014; UROBILINOGEN,URINE NEGATIVE mg/dL (<2.0)
[2018-08-07] MEDS ORDERED: ONDANSETRON 4 MG TAB.RAPDIS PO ONE (14:46)
== END 2018-08-07 15:12 | disposition home or self-care (01) ==
LOC: ER 13:46
DX: R30.0 Dysuria (principal); R19.4 Change in bowel habit; I10 Essential (primary) hypertension; E11.9 Type 2 diabetes mellitus without complications; F17.210 Nicotine dependence, cigarettes, uncomplicated; Z87.440 Personal history of urinary (tract) infections
CPT/HCPCS: 99283; 87086; 81001; S0119; J3490

== ENCOUNTER 2018-10-30 20:49 | Emergency (ER) | payer SELFPAY ==
--- NOTE | 2018-10-30 21:53 | RADIOLOGY REPORT (SQ) ---
EXAM DESCRIPTION: XR FOOT 3 OR MORE VIEWS COMPLETED DATE/TME: 10/30/2018 20:52 CLINICAL HISTORY: 43 years, Female, stepped on by horse COMPARISON: None. NUMBER OF VIEWS: Three TECHNIQUE: Frontal, oblique, and lateral radiographs of the left foot were obtained. LIMITATIONS: None. FINDINGS: Visualized osseous structures are normal in appearance. Joint spaces are well-maintained. No acute fracture or dislocation is evident. IMPRESSION: No osseous anomaly. copyright 2010 [employer]- All Rights Reserved
[2018-10-30] MEDS ORDERED: HYDROCODONE/ACETAMINOPHEN 5-325 MG (6 TAB/ER DISP) PO PRN (23:20)
--- NOTE | 2018-10-30 23:25 | ER Document Report ---
HPI - HPI Patient complains to provider of: left foot pain Time Seen by Provider: 10/30/18 23:12 Pain Level: 5 Context: Patient is a 43-year-old female that comes to the emergency department for chief complaint of a horse stepping on her left foot. She states this stepped on the top of her foot, she was wearing shoes, she did feel a pop, she reports pain and swelling. She denies any other locations of injury. There is a tiny abrasion to the top of 1 of her toes from the impact, she is up-to-date on her tetanus. She denies bleeding from the area. - REPRODUCTIVE Reproductive: DENIES: : - DERM Skin Color: Normal Past Medical History - General Information source: Patient - Social History Smoking Status: Current Every Day Smoker Chew tobacco use (# tins/day): No Smoking Education Provided: Yes - <3 min Frequency of alcohol use: None Drug Abuse: None Lives with: Family Family History: Reviewed & Not Pertinent, Arthritis, CAD, COPD, CVA, DM, Hyperlipidemia, Hypertension, Malignancy Patient has suicidal ideation: No Patient has homicidal ideation: No - Past Medical History Cardiac Medical History: Reports: Hx Hypertension Neurological Medical History: Reports: Hx Migraine Endocrine Medical History: Reports: Hx Diabetes Mellitus Type 2 - Diet- controlled diabetes Renal/ Medical History: Denies: Hx Peritoneal Dialysis GI Medical History: Reports: Hx Gastroesophageal Reflux Disease Musculoskeletal Medical History: Reports Hx Arthritis, Reports Hx Musculoskeletal Deformity, Reports Hx Musculoskeletal Trauma Psychiatric Medical History: Reports: Hx Anxiety, Hx Depression Traumatic Medical History: Reports: Hx Fractures - Toe Past Surgical History: Reports: Hx Adenoidectomy, Hx Dilation and Curettage, Hx Genitourinary Surgery - D&C, Hx Hysterectomy, Hx Tonsillectomy - adnoids removed, tubes in ears - Immunizations Immunizations up to date: Yes Hx Diphtheria, Pertussis, Tetanus Vaccination: Yes Vertical Provider Document - CONSTITUTIONAL General Appearance: WD/WN, No Apparent Distress, Thin - INFECTION CONTROL TRAVEL OUTSIDE OF THE [place] IN LAST 30 DAYS: No - HEENT HEENT: Atraumatic, Normocephalic - NECK Neck: Normal Inspection - RESPIRATORY Respiratory: Breath Sounds Normal, No Respiratory Distress - CARDIOVASCULAR Cardiovascular: Regular Rate, Regular Rhythm - GI/ABDOMEN Gastrointestinal: Abdomen Soft, Abdomen Non-Tender - MUSCULOSKELETAL/EXTREMETIES Musculoskeletal/Extremeties: MAEW, FROM, Tender - Tenderness over the dorsal aspect of the left foot without bruising. Questionable mild soft tissue swelling. There is a tiny abrasion over the distal foot dorsally as well. No open wounds, no bleeding, normal distal neurovascular exam, normal ankle exam, normal lower extremity exam otherwise. - NEURO Level of Consciousness: Awake, Alert Motor/Sensory: No Motor Deficit, No Sensory Deficit - DERM Integumentary: Warm, Dry, No Rash Course - Vital Signs Vital signs: Temp Pulse Resp BP Pulse Ox 98.2 F 79 20 124/88 H 97 10/30/18 20:59 10/30/18 20:59 10/30/18 20:59 10/30/18 20:59 10/30/18 20:59 - Diagnostic Test Radiology reviewed: Image reviewed, Reports reviewed Discharge - Discharge Clinical Impression: Left foot pain Struck by horse Qualifiers: Encounter type: initial encounter Qualified Code(s): W55.12XA - Struck by horse, initial encounter Condition: Stable Disposition: HOME, SELF-CARE Instructions: Oral Narcotic Medication ([facility]) Additional Instructions: The x-ray does not show a fracture. This is most likely soft tissue injury only. I do recommend that you use the crutches, elevate, ice 3-4 times a day, and then resume activity as tolerated. Follow-up with primary care. Return for any concerning symptoms including severe pain or swelling.
[2018-10-30 23:44] VITALS: BP 127/84
== END 2018-10-30 23:55 | disposition home or self-care (01) ==
LOC: ER 20:49
DX: S90.415A Abrasion, left lesser toe(s), initial encounter (principal); M79.672 Pain in left foot; W55.12XA Struck by horse, initial encounter; Y92.009 Unspecified place in unspecified non-institutional (private) residence as the place of occurrence of the external cause; F17.200 Nicotine dependence, unspecified, uncomplicated
CPT/HCPCS: 99283

== ENCOUNTER 2019-01-10 14:33 | Emergency (ER) | payer SELFPAY ==
[2019-01-10 14:56] VITALS: BP 123/75
[2019-01-10] MEDS ORDERED: DEXAMETHASONE SOD PHOS INJ 10 MG/1 ML VIAL IM ONE (16:09)
[2019-01-10] MEDS ORDERED: HYDROCODONE/ACETAMINOPHEN 5-325 MG TABLET PO ONE (16:09)
[2019-01-10] MEDS ORDERED: ONDANSETRON 4 MG TAB.RAPDIS PO ONE (16:10)
[2019-01-10] MEDS ORDERED: METHOCARBAMOL 500 MG TABLET PO ONE (16:10)
--- NOTE | 2019-01-10 16:15 | ER Document Report ---
HPI - HPI Time Seen by Provider: 01/10/19 15:37 Pain Level: 4 Notes: Patient is a 44-year-old female with history of rheumatoid arthritis presenting to the emergency department with chief complaint of bilateral leg pain. Patient reports severe sharp stabbing pains in both legs, states it feels like an RA flare. Patient reports she has no primary care provider, states that she has not seen a doctor in a couple of years. She denies any nausea, vomiting, diarrhea or fevers. She is able to ambulate and bear weight on the legs. - REPRODUCTIVE Reproductive: DENIES: : Past Medical History - General Information source: Patient - Social History Smoking Status: Current Every Day Smoker Frequency of alcohol use: None Drug Abuse: None Family History: Reviewed & Not Pertinent, Arthritis, CAD, COPD, CVA, DM, Hyperlipidemia, Hypertension, Malignancy - Past Medical History Cardiac Medical History: Reports: Hx Hypertension Neurological Medical History: Reports: Hx Migraine Endocrine Medical History: Reports: Hx Diabetes Mellitus Type 2 - Diet- controlled diabetes Renal/ Medical History: Denies: Hx Peritoneal Dialysis GI Medical History: Reports: Hx Gastroesophageal Reflux Disease Musculoskeletal Medical History: Reports Hx Arthritis, Reports Hx Musculoskeletal Deformity, Reports Hx Musculoskeletal Trauma Psychiatric Medical History: Reports: Hx Anxiety, Hx Depression Traumatic Medical History: Reports: Hx Fractures - Toe Past Surgical History: Reports: Hx Adenoidectomy, Hx Dilation and Curettage, Hx Genitourinary Surgery - D&C, Hx Hysterectomy, Hx Tonsillectomy - adnoids removed, tubes in ears - Immunizations Immunizations up to date: Yes Hx Diphtheria, Pertussis, Tetanus Vaccination: Yes Vertical Provider Document - CONSTITUTIONAL Notes: PHYSICAL EXAMINATION: GENERAL: Well-appearing, well-nourished and in no acute distress. HEAD: Atraumatic, normocephalic. EYES: Pupils equal round extraocular movements intact, conjunctiva are normal. ENT: Nares patent NECK: Normal range of motion LUNGS: No respiratory distress Musculoskeletal: Normal range of motion, tenderness to palpation to joints in bilateral lower extremities. NEUROLOGICAL: Normal speech. PSYCH: Normal mood, normal affect. SKIN: Warm, Dry, normal turgor, no rashes or lesions noted. - INFECTION CONTROL TRAVEL OUTSIDE OF THE [place] IN LAST 30 DAYS: No Course - Re-evaluation Re-evalutation: Patient was researched in the [employer] system. She has not had any recent narcotic prescriptions. She has multiple allergies. She states she does not have insurance, I will give her a shot of Decadron here in the emergency department and she will be given prescriptions to help with her symptoms. Encourage patient to follow-up with primary care, I gave her information for the [facility] so she can establish care with a primary care provider. Patient verbalized understanding and agreement with this plan. The patient's emergency department workup and current diagnosis were explained to the patient and or family. Follow-up instructions were provided. Medications if prescribed were discussed. Instructions for when to return to the emergency department including specific worrisome symptoms were discussed with the patient and/or family. - Vital Signs Vital signs: Temp Pulse Resp BP Pulse Ox 98.2 F 88 14 123/75 99 01/10/19 14:55 01/10/19 14:55 01/10/19 14:55 01/10/19 14:55 01/10/19 14:55 Discharge - Discharge Clinical Impression: Bilateral leg pain Condition: Stable Disposition: HOME, SELF-CARE Additional Instructions: Rheumatoid Arthritis Your symptoms are due to rheumatoid arthritis. This is an inflammation of the joints caused by your body's immune system. We don't know why rheumatoid arthritis occurs. The hands, feet, and knees are most often involved. Joints become swollen, stiff, and tender. Rheumatoid arthritis often has other symptoms such as low- grade fever, fatigue, and anemia (low red blood cell count). Arthritis is treated with antiinflammatory medication. We usually start with a non-steroid medicine such as ibuprofen or one of its relatives. The symptoms may spontaneously get better or worse from time to time. There is no permanent cure. Stronger antiinflammatory medicines may be added if the symptoms worsen. This can include cortisone medication, gold shots, immune suppressants, and other types of antiinflammatory medicine. Local warmth may be helpful. Move the involved joints through the full range of motion daily. Mild exercise is usually still possible for most persons with arthritis (ask your physician). Swimming provides good exercise without damaging the joints. Contact the physician if you are worsening in any way. Your leg pain is most likely being caused by a flareup of your rheumatoid arthritis. You have declined a prescription for prednisone, instead you have opted for a one-time dose of Decadron. Please take medications as prescribed. Please establish care with a primary care physician, a list has been given to you and you can also follow-up with the [facility] as they are a free clinic. Prescriptions: Hydrocodone/Acetaminophen [[place] 5-325 mg Tablet] 1 tab PO Q6H #6 tablet Methocarbamol [Robaxin 500 mg Tablet] 500 mg PO TID #20 tablet Ondansetron [Zofran Odt 4 mg Tablet] 1 - 2 tab PO Q4H PRN #15 tab.rapdis PRN Reason: For Nausea/Vomiting
== END 2019-01-10 16:33 | disposition home or self-care (01) ==
LOC: ER 14:33
DX: M79.605 Pain in left leg (principal); M79.604 Pain in right leg; I10 Essential (primary) hypertension; E11.9 Type 2 diabetes mellitus without complications; Z90.710 Acquired absence of both cervix and uterus
CPT/HCPCS: 99283; 96372; S0119; J1100

== ENCOUNTER 2019-09-10 14:52 | Emergency (ER) | payer SELFPAY ==
--- NOTE | 2019-09-10 15:32 | ER Document Report ---
ED General - General Chief Complaint: Toothache Stated Complaint: ABSCESS TOOTH Time Seen by Provider: 09/10/19 15:06 Notes: Patient is a 44-year-old white female with a past medical history significant for poor dentition who presents to the emergency department with chief complaint of dental pain that began several days ago. She states she has a history of poor dentition. Has seen a dentist and was told she will initially have to have all of her teeth pulled due to severe acid reflux. She states the left upper posterior molar is very tender with any situation, worsened by eating and drinking. Denies any difficulty breathing or trouble with secretions. Denies any tongue or throat swelling. Denies any fever, chills or night sweats. No recent travel or known sick contacts. TRAVEL OUTSIDE OF THE [place] IN LAST 30 DAYS: No - Related Data Allergies/Adverse Reactions: ceftriaxone sodium [From Rocephin] Allergy (Verified 01/10/19 14:48) meperidine HCl [From Demerol] Allergy (Verified 01/10/19 14:48) naproxen Allergy (Verified 01/10/19 14:48) promethazine HCl [From Phenergan] Allergy (Verified 01/10/19 14:48) Sulfa (Sulfonamide Antibiotics) Allergy (Verified 01/10/19 14:48) tramadol Allergy (Verified 01/10/19 14:48) ciprofloxacin [From Cipro] Adverse Reaction (Verified 01/10/19 14:48) Past Medical History - Social History Smoking Status: Current Every Day Smoker Family History: Reviewed & Not Pertinent, Arthritis, CAD, COPD, CVA, DM, Hyperlipidemia, Hypertension, Malignancy - Past Medical History Cardiac Medical History: Reports: Hx Hypertension Neurological Medical History: Reports: Hx Migraine Endocrine Medical History: Reports: Hx Diabetes Mellitus Type 2 - Diet- controlled diabetes Renal/ Medical History: Denies: Hx Peritoneal Dialysis GI Medical History: Reports: Hx Gastroesophageal Reflux Disease Musculoskeletal Medical History: Reports Hx Arthritis, Reports Hx Musculo skeletal Deformity, Reports Hx Musculoskeletal Trauma Psychiatric Medical History: Reports: Hx Anxiety, Hx Depression Traumatic Medical History: Reports: Hx Fractures - Toe Past Surgical History: Reports: Hx Adenoidectomy, Hx Dilation and Curettage, Hx Genitourinary Surgery - D&C, Hx Hysterectomy, Hx Tonsillectomy - adnoids removed, tubes in ears - Immunizations Immunizations up to date: Yes Hx Diphtheria, Pertussis, Tetanus Vaccination: Yes Review of Systems - Review of Systems EENT: Dental problem -: Yes All other systems reviewed and negative Physical Exam - General General appearance: Appears well, Alert In distress: None - HEENT Head: Normocephalic, Atraumatic Eyes: Normal Conjunctiva: Normal Extraocular movements intact: Yes Pupils: PERRL Ears: Normal External canal: Normal Tympanic membrane: Normal Sinus: Normal Nasal: Normal Mouth/Lips: Other - Poor dentition throughout. Broken left upper posterior molar. Minimal surrounding gingival erythema. No gingival abscess formation for drainage. Affected tooth is tender to percussion. Patent airway. Handling secretions well. No sublingual or submental swelling. No trismus. Mucous membranes: Normal Pharynx: Normal Neck: Normal, Supple. No: Anterior cervical chain, Lymphadenopathy - Respiratory Respiratory status: No respiratory distress Chest status: Nontender Breath sounds: Normal Chest palpation: Normal - Cardiovascular Rhythm: Regular Heart sounds: Normal auscultation - Neurological Neuro grossly intact: Yes Cognition: Normal Orientation: AAOx4 - Psychological Associated symptoms: Normal affect, Normal mood - Skin Skin Temperature: Warm Skin Moisture: Dry Skin Color: Normal Course - Re-evaluation Re-evalutation: 09/10/19 15:[address] or operate any heavy machinery while taking pain medications. Do not drink alcohol these medicines. Please follow-up with a dentist as soon as possible and your PCP in 2 to 3 days for reevaluation. Please return here or any ER immediately with any new, persistent or worsening symptoms. Patient verbalized understood and agreed. Discharge - Discharge Clinical Impression: Dentalgia, Dental abscess Condition: Stable Disposition: HOME, SELF-CARE Instructions: Clindamycin ([facility]) Additional Instructions: Follow-up with your regular doctor in 2 to 3 days for reevaluation. Return here or any ER immediately with any new, persistent or worsening symptoms. Prescriptions: Clindamycin HCl 300 mg PO Q6 #40 capsule Hydrocodone/Acetaminophen [[place] 5-325 mg Tablet] 1 tab PO Q6 PRN #10 tablet PRN Reason: Chlorhexidine Gluconate [Peridex] 15 ml MM BID #60 ml
[2019-09-10 15:52] VITALS: BP 134/95
== END 2019-09-10 15:53 | disposition home or self-care (01) ==
LOC: ER 14:52
DX: K04.7 Periapical abscess without sinus (principal); Z88.3 Allergy status to other anti-infective agents; Z88.6 Allergy status to analgesic agent; Z88.2 Allergy status to sulfonamides
CPT/HCPCS: 99282

== ENCOUNTER 2020-01-07 22:26 | Emergency (ER) | payer SELFPAY ==
[2020-01-07 22:40] VITALS: BP 127/76
== END 2020-01-08 00:45 | disposition left against medical advice (07) ==
LOC: ER 22:26
DX: Z53.21 Procedure and treatment not carried out due to patient leaving prior to being seen by health care provider (principal)

== ENCOUNTER 2020-01-16 10:13 | Emergency (ER) | payer SELFPAY ==
[2020-01-16] MEDS ORDERED: OXYCODONE-ACETAMINOPHEN 5-325 MG TABLET PO ONE (10:38)
--- NOTE | 2020-01-16 10:41 | ER Document Report ---
ED Medical Screen (RME) - General Chief Complaint: Pain All Over Stated Complaint: ARM PAIN/KICKED BY HORSE Time Seen by Provider: 01/16/20 10:35 Mode of Arrival: Wheelchair Information source: Patient Notes: Patient is a 45-year-old female who comes emergency room in obvious pain and discomfort after being kicked by a horse night before last. Patient states that she is not exactly sure how it happened but both feet color at the same time she denies any abdominal pain but is having severe shoulder and arm pains along with anterior chest discomfort. Physical examination shows patient to be a very frail appearing 45-year-old female is in no distress at this time however she is in obvious pain and discomfort. Cardiac: Regular rate and rhythm with no murmurs noted. Lungs: Bilateral breath sounds decreased throughout no rhonchi or wheeze. Further evaluation of the anterior chest does not show any bruising but has diffuse tenderness across the anterior and anterior chest. Abdomen: Examination patient's abdomen shows no tenderness to palpation on physical examination in a sitting position. Upper extremities. Examination shows patient have moderate tenderness in bilateral shoulders with decreased range of motion in all planes. Decreased thickening is also noted. Mild tenderness in the left and right humerus to palpation. I have greeted and performed a rapid initial assessment of this patient. A comprehensive ED assessment and evaluation of the patient, analysis of test results and completion of the medical decision making process will be conducted by additional ED providers. Dictation of this chart was performed using voice recognition software; therefore, there may be some unintended grammatical errors. TRAVEL OUTSIDE OF THE [place] IN LAST 30 DAYS: No - Related Data Allergies/Adverse Reactions: ceftriaxone sodium [From Rocephin] Allergy (Verified 01/08/20 11:26) meperidine HCl [From Demerol] Allergy (Verified 01/08/20 11:26) naproxen Allergy (Verified 01/08/20 11:26) promethazine HCl [From Phenergan] Allergy (Verified 01/08/20 11:26) Sulfa (Sulfonamide Antibiotics) Allergy (Verified 01/08/20 11:26) tramadol Allergy (Verified 01/08/20 11:26) ciprofloxacin [From Cipro] Adverse Reaction (Verified 01/08/20 11:26) Past Medical History - Social History Chew tobacco use (# tins/day): No Frequency of alcohol use: None Drug Abuse: None - Past Medical History Cardiac Medical History: Reports: Hx Hypertension Neurological Medical History: Reports: Hx Migraine Endocrine Medical History: Reports: Hx Diabetes Mellitus Type 2 - Diet- controlled diabetes Renal/ Medical History: Denies: Hx Peritoneal Dialysis GI Medical History: Reports: Hx Gastroesophageal Reflux Disease Musculoskeltal Medical History: Reports Hx Arthritis, Reports Hx Musculoskeletal Deformity, Reports Hx Musculoskeletal Trauma Psychiatric Medical History: Reports: Hx Anxiety, Hx Depression Traumatic Medical History: Reports: Hx Fractures - Toe Past Surgical History: Reports: Hx Adenoidectomy, Hx Dilation and Curettage, Hx Genitourinary Surgery - D&C, Hx Hysterectomy, Hx Tonsillectomy - adnoids removed, tubes in ears - Immunizations Immunizations up to date: Yes Hx Diphtheria, Pertussis, Tetanus Vaccination: Yes Physical Exam - Vital signs Vitals: Temp Pulse Resp BP Pulse Ox 98.3 F 86 20 119/90 H 100 01/16/20 10:29 01/16/20 10:29 01/16/20 10:29 01/16/20 10:29 01/16/20 10:29 Course - Vital Signs Vital signs: Temp Pulse Resp BP Pulse Ox 98.3 F 86 20 119/90 H 100 01/16/20 10:30 01/16/20 10:29 01/16/20 10:29 01/16/20 10:29 01/16/20 10:29
--- NOTE | 2020-01-16 11:16 | RADIOLOGY REPORT (SQ) ---
EXAM DESCRIPTION: CT CHEST WITHOUT IMAGES COMPLETED DATE/TIME: 01/16/2020 10:55 am REASON FOR STUDY: Kicked by horse COMPARISON: None. TECHNIQUE: CT scan performed of the chest without intravenous contrast. Images reviewed with lung, soft tissue and bone windows. Reconstructed coronal and sagittal MPR images reviewed. All images st ored on PACS. All CT scanners at this facility use dose modulation, iterative reconstruction, and/or weight based d osing when appropriate to reduce radiation dose to as low as reasonably achievable (ALARA). [facility]: Dose Right [facility]: CareDose [facility]: Dose Right [facility]: Teradose 4D [facility]: Deemelo RADIATION DOSE: CT Rad equipment meets quality standard of care and radiation dose reduction techniq ues were employed. CTDIvol: 4.8 mGy. DLP: 188 mGy-cm. mGy. LIMITATIONS: No technical limitations. FINDINGS: LUNGS AND PLEURA: No masses, infiltrates, or pneumothorax. No pleural effusions or pleura l calcifications. HILAR AND MEDIASTINAL STRUCTURES: No identified masses or abnormal nodes. No obvious aneurysm. HEART AND VASCULAR STRUCTURES: No aneurysm. No pericardial effusion. UPPER ABDOMEN: No significant findings. Limited exam. THYROID AND OTHER SOFT TISSUES: No masses. No adenopathy. BONES: No significant finding. HARDWARE: None in the chest. OTHER: No other significant findings. IMPRESSION: NO SIGNIFICANT FINDING ON NON-CONTRASTED CHEST CT. TECHNICAL DOCUMENTATION: JOB ID: [id number] Quality ID # [id number]: Final reports with documentation of one or more dose reduction techniques (e.g., Au tomated exposure control, adjustment of the mA and/or kV according to patient size, use of iterative reconstruction technique) 2010 [employer]- All Rights Reserved Reading location - IP/workstation name: [email or web address]
--- NOTE | 2020-01-16 11:28 | RADIOLOGY REPORT (SQ) ---
EXAM DESCRIPTION: HUMERUS BILAT 2 OR MORE VIEWS IMAGES COMPLETED DATE/TIME: 01/16/2020 11:17 am REASON FOR STUDY: Kicked by horse COMPARISON: None. NUMBER OF VIEWS: Two views. TECHNIQUE: Two radiographic images were acquired of the right and left humerus to include elbow and shoulder in at least one projection. LIMITATIONS: None. FINDINGS: MINERALIZATION: Normal. BONES: No acute fracture or dislocation. No worrisome bone lesions. SOFT TISSUES: No obvious swelling or foreign body. OTHER: No other significant finding. IMPRESSION: NEGATIVE STUDY OF THE RIGHT AND LEFT HUMERUS. NO RADIOGRAPHIC EVIDENCE OF ACUTE INJURY. TECHNICAL DOCUMENTATION: JOB ID: [id number] 2010 [employer]- All Rights Reserved Reading location - IP/workstation name: [email or web address]
--- NOTE | 2020-01-16 11:28 | RADIOLOGY REPORT (SQ) ---
EXAM DESCRIPTION: ELBOW LEFT OVER 2 VIEWS IMAGES COMPLETED DATE/TIME: 01/16/2020 11:17 am REASON FOR STUDY: Kicked by horse COMPARISON: None. NUMBER OF VIEWS: Four views. TECHNIQUE: AP, lateral, and both oblique radiographic images acquired of the left elbow. LIMITATIONS: None. FINDINGS: MINERALIZATION: Normal. BONES: No acute fracture or dislocation. No worrisome bone lesions. JOINT: No effusion. SOFT TISSUES: No soft tissue swelling. No foreign body. OTHER: No other significant finding. IMPRESSION: NEGATIVE STUDY OF THE LEFT ELBOW. NO RADIOGRAPHIC EVIDENCE OF ACUTE INJURY. TECHNICAL DOCUMENTATION: JOB ID: [id number] 2010 [employer]- All Rights Reserved Reading location - IP/workstation name: [email or web address]
--- NOTE | 2020-01-16 11:30 | RADIOLOGY REPORT (SQ) ---
EXAM DESCRIPTION: SHOULDER BILAT 2 OR MORE VIEWS IMAGES COMPLETED DATE/TIME: 01/16/2020 11:17 am REASON FOR STUDY: Kicked by horse COMPARISON: None. NUMBER OF VIEWS: Three views. TECHNIQUE: Internal rotation, external rotation, and Y view images acquired of the right and left sh oulder. LIMITATIONS: None. FINDINGS: MINERALIZATION: Normal. BONES: No acute fracture. No worrisome bone lesions. JOINTS: No dislocation. VISUALIZED LUNGS AND RIBS: No pneumothorax. No rib fracture. SOFT TISSUES: No radiopaque foreign body. OTHER: No other significant finding. IMPRESSION: NEGATIVE STUDY OF THE RIGHT AND LEFT SHOULDERS. NO RADIOGRAPHIC EVIDENCE OF ACUTE INJURY . TECHNICAL DOCUMENTATION: JOB ID: [id number] 2010 [employer]- All Rights Reserved Reading location - IP/workstation name: [email or web address]
--- NOTE | 2020-01-16 16:05 | ER Document Report ---
ED General Pain - General Chief Complaint: Pain All Over Stated Complaint: ARM PAIN/KICKED BY HORSE Time Seen by Provider: 01/16/20 10:35 Mode of Arrival: Wheelchair Notes: 45-year-old female presents to the emergency department with a history of kicked by a horse 2 days ago. She states that they were feeding her horses when horse reared up and kicked at her she put her arms up to block to kick from hitting her face she was struck on the left arm and also in the mid chest area. She states the kick latesha her from the ground, however she was not knocked down. She has been using Tylenol and ibuprofen, states that the pain was not controlled and she was having difficulty resting because of pain. TRAVEL OUTSIDE OF THE [place] IN LAST 30 DAYS: No - Related Data Allergies/Adverse Reactions: ceftriaxone sodium [From Rocephin] Allergy (Verified 01/08/20 11:26) meperidine HCl [From Demerol] Allergy (Verified 01/08/20 11:26) naproxen Allergy (Verified 01/08/20 11:26) promethazine HCl [From Phenergan] Allergy (Verified 01/08/20 11:26) Sulfa (Sulfonamide Antibiotics) Allergy (Verified 01/08/20 11:26) tramadol Allergy (Verified 01/08/20 11:26) ciprofloxacin [From Cipro] Adverse Reaction (Verified 01/08/20 11:26) Past Medical History - General Information source: Patient - Social History Smoking Status: Current Every Day Smoker Chew tobacco use (# tins/day): No Frequency of alcohol use: None Drug Abuse: None Family History: Reviewed & Not Pertinent, Arthritis, CAD, COPD, CVA, DM, Hyperlipidemia, Hypertension, Malignancy Patient has homicidal ideation: No - Past Medical History Cardiac Medical History: Reports: Hx Hypertension Neurological Medical History: Reports: Hx Migraine Endocrine Medical History: Reports: Hx Diabetes Mellitus Type 2 - Diet- controlled diabetes Renal/ Medical History: Denies: Hx Peritoneal Dialysis GI Medical History: Reports: Hx Gastroesophageal Reflux Disease Musculoskeletal Medical History: Reports Hx Arthritis, Reports Hx Musculoskeletal Deformity, Reports Hx Musculoskeletal Trauma Psychiatric Medical History: Reports: Hx Anxiety, Hx Depression Traumatic Medical History: Reports: Hx Fractures - Toe Past Surgical History: Reports: Hx Adenoidectomy, Hx Dilation and Curettage, Hx Genitourinary Surgery - D&C, Hx Hysterectomy, Hx Tonsillectomy - adnoids removed, tubes in ears - Immunizations Immunizations up to date: Yes Hx Diphtheria, Pertussis, Tetanus Vaccination: Yes Review of Systems - Review of Systems Notes: Constitutional: Negative for fever. HENT: Negative for sore throat. Eyes: Negative for visual changes. Cardiovascular: Negative for chest pain. Respiratory: Negative for shortness of breath. Gastrointestinal: Negative for abdominal pain, vomiting or diarrhea. Genitourinary: Negative for dysuria. Musculoskeletal: + Pain left upper extremity, + pain left elbow, left anterior chest wall pain Skin: Negative for rash. Neurological: Negative for headaches, weakness or numbness. 10 point ROS negative except as marked above and in HPI. Physical Exam - Vital signs Vitals: Temp Pulse Resp BP Pulse Ox 98.3 F 86 20 119/90 H 100 01/16/20 10:29 01/16/20 10:29 01/16/20 10:29 01/16/20 10:29 01/16/20 10:29 - Notes Notes: PHYSICAL EXAMINATION: Physical Exam: General: Well-nourished well-developed 45-year-old woman in distress secondary to discomfort/pain HEENT: NC/AT, pupils equal round and reactive to light, MM moist,nares clear, oropharynx clear, airway patent Neck: supple, no adenopathy, no masses. Good range of motion Lungs: clear, no wheezing, no rales no rhonchi CVS: Regular rate and rhythm no murmur gallop or rub Abdomen: Soft, active, nontender, no masses, no hepatosplenomegaly Ext: + Tenderness in the left upper extremity and across the left upper trapezius region, tenderness in the anterior chest wall and no crepitus and no deformity noted. Tenderness left elbow good range of motion. Neuro: Alert and responsive, moving all 4 extremities on command, cranial nerves intact, no focal findings Skin: Intact no open lesions, no rash PSYCH: Normal mood, normal affect. Course - Re-evaluation Re-evalutation: 01/16/20 16:30 I have reviewed the x-rays and discussed them with the patient explained that she has no fracture or dislocation noted. She seemed to be pleased with that information. She is being discharged home with hydrocodone, Zofran and instructions to continue the use of ibuprofen and cold application to the areas of tenderness. I explained that the contusions will continue to have some soreness however given the lack of fracture or internal injury she should be stable. - Vital Signs Vital signs: Temp Pulse Resp BP Pulse Ox 98.3 F 86 20 119/90 H 100 01/16/20 10:30 01/16/20 10:29 01/16/20 10:29 01/16/20 10:29 01/16/20 10:29 - Diagnostic Test Radiology reviewed: Image reviewed, Reports reviewed Radiology results interpreted by me: 01/16/20 16:27 CT chest noncontrast: No acute findings, no bony injury, no pulmonary findings. X-ray left elbow: No fracture, no dislocation X-ray left humerus: No fracture X-ray left shoulder: No fracture, no dislocation seen. Discharge - Discharge Clinical Impression: Contusion of left chest wall Qualifiers: Encounter type: initial encounter Qualified Code(s): S20.212A - Contusion of left front wall of thorax, initial encounter Contusion of left upper arm Qualifiers: Encounter type: initial encounter Qualified Code(s): S40.022A - Contusion of left upper arm, initial encounter Condition: Good Disposition: HOME, SELF-CARE Instructions: Contusion ([facility]), Rib Contusion ([facility]) Additional Instructions: You were seen in the emergency department today with injuries that were sustained from being kicked by a horse 2 days ago. There were no fractures or dislocations noted on the x-rays. You have sustained contusion/soft tissue injury which should be managed with anti-inflammatory pain medications application of cold pack and time. You may follow-up with your primary care doctor if needed. HOME CARE INSTRUCTIONS & INFORMATION: Thank you for choosing us for your medical needs. We hope you're satisfied with the care you received. After you leave, you must properly care for your problem and, at the same time, observe its progress. Any condition can change. Some illnesses can change rapidly over hours or days. If your condition worsens, return to the Emergency Department or see your physician promptly. ABOUT YOUR X-RAYS AND EKG'S: If you had an EKG or X-rays taken, they have been read by the Emergency Physician. The X-rays and EKG's will also be read by a Radiologist or Hydrocrane Operator within 24 hours. If discrepancies are noted, you will be notified by telephone. Please be certain the ED has a correct telephone number & address where you can be reached. Also, realize that some fractures or abnormalities do not show up on initial X-rays. If your symptoms continue, see your physician. ABOUT YOUR LABORATORY TEST: If you had laboratory tests, the results have been reviewed by the Emergency Physician. Some test results (for example cultures) may not be available for several days. You will be contacted if any test result shows you need additional treatment. Please be certain the ED has a correct telephone number and address where you can be reached. ABOUT YOUR MEDICATIONS: You will receive instructions on how to take your medicine on the prescription label you receive. Additional information may be provided by the Pharmacy. If you have questions afterwards, call the ED for clarification or further instructions. Some prescribed medications may cause drowsiness. Do not perform tasks such as driving a car or operating machinery without consulting your Pharmacist. If you feel you need a refill of pain m edication, your condition will need re-evaluation. Please do not call for a refill of any medication. ABOUT YOUR SIGNATURE: Signature of this document acknowledges to followin. Understanding that you received emergency treatment and that you may be released before al medical problems are known or treated. Please be certain the ED has a correct phone number & address where you can be reached. 2. Acknowledgement that you will arrange for follow-up care as recommended. 3. Authorization for the Emergency Physician to provide information to your follow-up Physician in order to maximize your care. AT ANY TIME, IF YOUR SYMPTOMS CHANGE SIGNIFICANTLY OR WORSEN OR YOU DEVELOP NEW SYMPTOMS, RETURN TO THE EMERGENCY DEPARTMENT IMMEDIATELY FOR RE-EVALUATION. OUR GOAL IS TO PROVIDE EXCELLENT MEDICAL CARE! WE HOPE THAT WE HAVE MET YOUR EXPECTATIONS DURING YOUR EMERGENCY DEPARTMENT VISIT AND THAT YOU FEEL YOU HAVE RECEIVED EXCELLENT CARE! Prescriptions: Hydrocodone/Acetaminophen [[place] 5-325 mg Tablet] 1 tab PO Q6 PRN #10 tablet PRN Reason: For Pain Ondansetron [Zofran Odt 4 mg Tablet] 1 - 2 tab PO Q4H PRN #15 tab.rapdis PRN Reason: For Nausea/Vomiting
[2020-01-16] MEDS ORDERED: HYDROMORPHONE HCL INJ/PF 2 MG/ML AMPULE IM ONE (16:06)
[2020-01-16] MEDS ORDERED: ONDANSETRON 4 MG TAB.RAPDIS PO ONE (16:07)
[2020-01-16 16:58] VITALS: BP 112/58
== END 2020-01-16 16:50 | disposition home or self-care (01) ==
LOC: ER 10:13
DX: S20.212A Contusion of left front wall of thorax, initial encounter (principal); S40.022A Contusion of left upper arm, initial encounter; M79.602 Pain in left arm; M25.522 Pain in left elbow; R07.89 Other chest pain; W55.12XA Struck by horse, initial encounter; Z88.2 Allergy status to sulfonamides; Z88.1 Allergy status to other antibiotic agents; Z88.8 Allergy status to other drugs, medicaments and biological substances; F17.200 Nicotine dependence, unspecified, uncomplicated; I10 Essential (primary) hypertension; E11.9 Type 2 diabetes mellitus without complications
CPT/HCPCS: 99285; 96372; 73080; 73030; 73060; 71250; S0119; J1170

== ENCOUNTER 2020-02-15 15:40 | Emergency (ER) | payer SELFPAY ==
[2020-02-15] MEDS ORDERED: PHENAZOPYRIDINE HCL 100 MG TABLET PO ONE (16:11)
[2020-02-15] MEDS ORDERED: CEPHALEXIN 500 MG CAPSULE PO ONE ×2 (16:11→18:31)
[2020-02-15] MEDS ORDERED: NORMAL SALINE 1000 ML 1,000 ML IV ONE ×2 (16:13→18:41)
--- NOTE | 2020-02-15 16:16 | ER Document Report ---
ED Medical Screen (RME) - General Chief Complaint: Flank Pain Stated Complaint: FLANK/BACK PAIN Time Seen by Provider: 02/15/20 16:05 Mode of Arrival: Medic Information source: Patient Notes: 45-year-old female presented to ED for complaint of bladder pain and now going into her flank. She states she gets frequent UTIs because of frequent urinary tract infections. She states she is allergic multiple antibiotics other medications. She states she can take Keflex but cannot take Rocephin. She states she knows the symptoms because she gets very frequent UTIs. States she has never had a kidney stone. She states she has had a hysterectomy. She also has panic and anxiety attacks. She states she was kicked by a horse recently. She states she does smoke a pack a day but does not drink or use any illicit drugs. I have ordered blood urine and a CT scan of also order some Keflex and a IV fluid. She did receive Toradol and Zofran in the EMS. I have greeted and performed a rapid initial assessment of this patient. A comprehensive ED assessment and evaluation of the patient, analysis of test results and completion of medical decision making process will be conducted by an additional ED providers. TRAVEL OUTSIDE OF THE [place] IN LAST 30 DAYS: No - Related Data Allergies/Adverse Reactions: ceftriaxone sodium [From Rocephin] Allergy (Verified 02/15/20 16:05) meperidine HCl [From Demerol] Allergy (Verified 02/15/20 16:05) naproxen Allergy (Verified 02/15/20 16:05) promethazine HCl [From Phenergan] Allergy (Verified 02/15/20 16:05) Sulfa (Sulfonamide Antibiotics) Allergy (Verified 02/15/20 16:05) tramadol Allergy (Verified 02/15/20 16:05) ciprofloxacin [From Cipro] Adverse Reaction (Verified 02/15/20 16:05) Home Medications: Prilosec Past Medical History - Social History Frequency of alcohol use: None Drug Abuse: None - Past Medical History Cardiac Medical History: Reports: Hx Hypertension Neurological Medical History: Reports: Hx Migraine Endocrine Medical History: Reports: Hx Diabetes Mellitus Type 2 - Diet- controlled diabetes Renal/ Medical History: Denies: Hx Peritoneal Dialysis GI Medical History: Reports: Hx Gastroesophageal Reflux Disease Musculoskeltal Medical History: Reports Hx Arthritis, Reports Hx Musculoskeletal Deformity, Reports Hx Musculoskeletal Trauma Psychiatric Medical History: Reports: Hx Anxiety, Hx Depression Traumatic Medical History: Reports: Hx Fractures - Toe Past Surgical History: Reports: Hx Adenoidectomy, Hx Dilation and Curettage, Hx Genitourinary Surgery - D&C, Hx Hysterectomy, Hx Tonsillectomy - adnoids removed, tubes in ears - Immunizations Immunizations up to date: Yes Hx Diphtheria, Pertussis, Tetanus Vaccination: Yes Physical Exam - Vital signs Vitals: Temp Pulse Resp BP Pulse Ox 98.2 F 79 24 H 140/91 H 100 02/15/20 15:51 02/15/20 15:51 02/15/20 15:51 02/15/20 15:51 02/15/20 15:51 Course - Vital Signs Vital signs: Temp Pulse Resp BP Pulse Ox 98.2 F 79 24 H 140/91 H 100 02/15/20 15:51 02/15/20 15:51 02/15/20 15:51 02/15/20 15:51 02/15/20 15:51
[2020-02-15 16:43] LABS: ABSOLUTE BASOPHILS # (AUTO) 0.1 10^3/uL (0.0-0.2); ABSOLUTE EOSINOPHILS # (AUTO) 0.1 10^3/uL (0.0-0.6); ABSOLUTE LYMPHOCYTES (AUTO) 3.2 10^3/uL (0.5-4.7); ABSOLUTE MONOCYTES (AUTO) 0.9 10^3/uL (0.1-1.4); ABSOLUTE NEUT (AUTO) 14.6 10^3/uL (1.7-8.2); BASOPHILS % (AUTO) 0.3 % (0-2); EOSINOPHILS % (AUTO) 0.4 % (0-6); HEMATOCRIT 41.2 % (36.0-47.0); HEMOGLOBIN 14.3 g/dL (12.0-15.5); MEAN CORPUSCULAR HEMOGLOBIN 32.9 pg (27.0-33.4); MEAN CORPUSCULAR HGB CONC 34.6 g/dL (32.0-36.0); MEAN CORPUSCULAR VOLUME 95 fl (80-97); MONOCYTES % (AUTO) 4.7 % (3-13); PLATELET COUNT 437 10^3/uL (150-450); RED BLOOD COUNT 4.33 10^6/uL (3.72-5.28); RED CELL DISTRIBUTION WIDTH 13.8 % (11.5-14.0); SEGMENTED NEUTROPHILS % (AUTO) 77.6 % (42-78); TOTAL CELLS COUNTED % (AUTO) 100 %; WHITE BLOOD COUNT 18.9 10^3/uL (4.0-10.5)
[2020-02-15 16:59] LABS: ALBUMIN 4.1 g/dL (3.5-5.0); ALKALINE PHOSPHATASE 91 U/L (38-126); ASPARTATE AMINO TRANSFERASE 18 U/L (14-36); BILIRUBIN,DIRECT 0.3 mg/dL (0.0-0.4); BILIRUBIN,TOTAL 0.5 mg/dL (0.2-1.3); BLOOD UREA NITROGEN 10 mg/dL (7-20); CALCIUM 9.7 mg/dL (8.4-10.2); CARBON DIOXIDE 28 mmol/L (22-30); GLUCOSE 89 mg/dL (75-110); POTASSIUM 4.2 mmol/L (3.6-5.0); TOTAL PROTEIN 6.8 g/dL (6.3-8.2)
[2020-02-15 17:06] LABS: CHLORIDE 105 mmol/L (98-107)
[2020-02-15 17:15] LABS: ANION GAP 5 (5-19)
[2020-02-15] MEDS ORDERED: MORPHINE SULFATE 10 MG/ML INJ IV ONE ×2 (17:24→18:18)
--- NOTE | 2020-02-15 17:33 | ER Document Report ---
ED GI/ - General Chief Complaint: Flank Pain Stated Complaint: FLANK/BACK PAIN Time Seen by Provider: 02/15/20 16:05 Mode of Arrival: Medic Notes: HPI: 45-year-old female with supposedly multiple urinary tract infections since the age of 16 currently without a urologist secondary to lack of insurance who presents today with some dysuria and right flank pain starting yesterday. She denies any cough, vomiting, diarrhea, and denies any fevers. Past medical history also has anxiety. She states she is allergic to multiple medications. She states she can take Keflex but not Rocephin. She denies a history of kidney stones. ROS: See HPI All other review of systems reviewed and otherwise negative Reviewed vital signs and nursing note as charted by RN. PHYSICAL EXAM: CONSTITUTIONAL: Alert and oriented and responds appropriately to questions. Patient appears to be in pain HEAD: Normocephalic; atraumatic NECK: Supple without meningismus; non-tender; no cervical lymphadenopathy, no masses CARD: Regular rate and rhythm; no murmurs; symmetric distal pulses RESP: Normal chest excursion without splinting or tachypnea; breath sounds clear and equal bilaterally; no wheezes, no rhonchi, no rales ABD/GI: Normal bowel sounds; non-distended; soft, non-tender currently to deep palpation of all 4 quadrants of the abdomen BACK: The back appears normal with some right-sided CVA tenderness without swell ing or erythema EXT: left arm is in a sling secondary to what she states is a rotator cuff injury 6 weeks ago SKIN: No acute lesions noted NEURO: CN 2-12 intact; 5/5 bilateral upper and lower extremity strength with sensation intact to light touch PSYCH: The patient's mood and manner are appropriate. Grooming and personal hygiene are appropriate. TRAVEL OUTSIDE OF THE [place] IN LAST 30 DAYS: No - Related Data Allergies/Adverse Reactions: ceftriaxone sodium [From Rocephin] Allergy (Verified 02/15/20 16:05) meperidine HCl [From Demerol] Allergy (Verified 02/15/20 16:05) naproxen Allergy (Verified 02/15/20 16:05) promethazine HCl [From Phenergan] Allergy (Verified 02/15/20 16:05) Sulfa (Sulfonamide Antibiotics) Allergy (Verified 02/15/20 16:05) tramadol Allergy (Verified 02/15/20 16:05) ciprofloxacin [From Cipro] Adverse Reaction (Verified 02/15/20 16:05) Home Medications: Prilosec Past Medical History - General Information source: Patient - Social History Smoking Status: Current Every Day Smoker Frequency of alcohol use: None Drug Abuse: None Family History: Reviewed & Not Pertinent, Arthritis, CAD, COPD, CVA, DM, Hyperlipidemia, Hypertension, Malignancy - Past Medical History Cardiac Medical History: Reports: Hx Hypertension Neurological Medical History: Reports: Hx Migraine Endocrine Medical History: Reports: Hx Diabetes Mellitus Type 2 - Diet- controlled diabetes Renal/ Medical History: Denies: Hx Peritoneal Dialysis GI Medical History: Reports: Hx Gastroesophageal Reflux Disease Musculoskeletal Medical History: Reports Hx Arthritis, Reports Hx Musculoskeletal Deformity, Reports Hx Musculoskeletal Trauma Psychiatric Medical History: Reports: Hx Anxiety, Hx Depression Traumatic Medical History: Reports: Hx Fractures - Toe Past Surgical History: Reports: Hx Adenoidectomy, Hx Dilation and Curettage, Hx Genitourinary Surgery - D&C, Hx Hysterectomy, Hx Tonsillectomy - adnoids removed, tubes in ears - Immunizations Immunizations up to date: Yes Hx Diphtheria, Pertussis, Tetanus Vaccination: Yes Physical Exam - Vital signs Vitals: Temp Pulse Resp BP Pulse Ox 98.2 F 79 24 H 140/91 H 100 02/15/20 15:51 02/15/20 15:51 02/15/20 15:51 02/15/20 15:51 02/15/20 15:51 Course - Re-evaluation Re-evalutation: Given the above history and physical examination, laboratory work including a white blood cell count and chemistry was ordered as well as urine analysis and a renal colic CT. We would like to assess the possibility of renal colic, kidney infection, sepsis, or other acute problems. 02/15/20 17:33 White blood cell count as recorded. CT scan of the abdomen and pelvis has been performed and interpretation is pending. 02/15/20 18:32 No vomiting here. Patient has much increased pain. No obvious pyelonephritis. No obvious ureteral blockage. No fever and diabetes. I have given the patient the option for admission versus outpatient treatment. Patient wants to go home. She states she feels so good that she "wants to kiss my forehead". I do believe this is a reasonable option. We have provided outpatient follow-up as well as her next course of antibiotics and a take-home pain pack given that her [facility] pharmacy is currently closed. - Vital Signs Vital signs: Temp Pulse Resp BP Pulse Ox 98.2 F 79 24 H 140/91 H 100 02/15/20 15:51 02/15/20 15:51 02/15/20 15:51 02/15/20 15:51 02/15/20 15:51 - Laboratory Result Diagrams: 02/15/20 16:25 02/15/20 16:25 Laboratory results interpreted by me: 02/15/20 02/15/20 16:25 17:45 WBC 18.9 H Absolute Neuts (auto) 14.6 H Urine Protein 100 H Urine Blood MODERATE H Urine Nitrite POSITIVE H Ur Leukocyte Esterase LARGE H Discharge - Discharge Clinical Impression: Right flank pain Urinary tract infection Qualifiers: Urinary tract infection type: site unspecified Hematuria presence: without hematuria Qualified Code(s): N39.0 - Urinary tract infection, site not specified Condition: Good Disposition: HOME, SELF-CARE Additional Instructions: Come back immediately for any increased pain, change in location or quality of pain, vomiting or fevers, inability urinate, or any other acute problems. Please make sure that you follow-up with the primary care physician for reassessment and take the antibiotics as prescribed. Prescriptions: Cephalexin Monohydrate [Keflex 500 mg Capsule] 500 mg PO Q8H 10 Days capsule Cephalexin Monohydrate [Keflex 500 mg Capsule] 500 mg PO Q8H 10 Days #30 capsule Hydrocodone/Acetaminophen [[place] 5-325 mg Tablet] 1 tab PO Q8 #10 tablet
--- NOTE | 2020-02-15 17:38 | RADIOLOGY REPORT (SQ) ---
EXAM DESCRIPTION: CT ABD/PELVIS NO ORAL OR IV IMAGES COMPLETED DATE/TIME: 02/15/2020 5:16 pm REASON FOR STUDY: Anthony and pelvic pain COMPARISON: CT abdomen pelvis 05/23/2018 TECHNIQUE: CT scan of the abdomen and pelvis performed without intravenous or oral contrast. Images reviewed with lung, soft tissue, and bone windows. Reconstructed coronal and sagittal MPR images revi ewed. All images stored on PACS. All CT scanners at this facility use dose modulation, iterative reconstruction, and/or weight based d osing when appropriate to reduce radiation dose to as low as reasonably achievable (ALARA). [facility]: Dose Right [facility]: CareDose [facility]: Dose Right [facility]: Teradose 4D [facility]: auctionpoint RADIATION DOSE: CT Rad equipment meets quality standard of care and radiation dose reduction techniq ues were employed. CTDIvol: 4.8 mGy. DLP: 229 mGy-cm.mGy. LIMITATIONS: None. FINDINGS: LOWER CHEST: No significant findings. No nodules or infiltrates. NON-CONTRASTED LIVER, SPLEEN, ADRENALS: Evaluation limited by lack of IV contrast. No identified sign ificant masses. PANCREAS: No masses. No peripancreatic inflammatory changes. GALLBLADDER: No identified stones by CT criteria. No inflammatory changes to suggest cholecystitis. RIGHT KIDNEY AND URETER: No solid masses. No significant calcification. No hydronephrosis or hydroure ter. LEFT KIDNEY AND URETER: No solid masses. No significant calcification. No hydronephrosis or hydrouret er. AORTA AND RETROPERITONEUM: No aneurysm. No retroperitoneal masses or adenopathy. BOWEL AND PERITONEAL CAVITY: No obvious masses or inflammatory changes. No free fluid. Large colonic stool burden. APPENDIX: Not visualized. PELVIS, BLADDER, AND ABDOMINAL WALL:No abnormal masses. No free fluid. Bladder normal. BONES: No significant findings. OTHER: No other significant finding. IMPRESSION: No urolithiasis or evidence of obstructive uropathy. No acute inflammatory changes in the abdomen or pelvis. Large colonic stool burden. Correlate for constipation. TECHNICAL DOCUMENTATION: JOB ID: [id number] Quality ID # [id number]: Final reports with documentation of one or more dose reduction techniques (e.g., Au tomated exposure control, adjustment of the mA and/or kV according to patient size, use of iterative reconstruction technique) 2010 [employer]- All Rights Reserved Reading location - IP/workstation name: [email or web address]
[2020-02-15 18:07] LABS: APPEARANCE,URINE CLOUDY; BILIRUBIN,URINE NEGATIVE (NEGATIVE); COLOR,URINE YELLOW; GLUCOSE, URINE NEGATIVE (NEGATIVE); KETONES,URINE NEGATIVE (NEGATIVE); LEUKOCYTE ESTERASE,URINE LARGE (NEGATIVE); NITRITE,URINE POSITIVE (NEGATIVE); PROTEIN,URINE 100 mg/dL (NEGATIVE); URINE SPECIFIC GRAVITY 1.005; UROBILINOGEN,URINE NEGATIVE mg/dL (<2.0)
[2020-02-15] MEDS ORDERED: HYDROCODONE/ACETAMINOPHEN 5-325 MG (6 TAB/ER DISP) PO PRN (18:31)
[2020-02-15 19:01] VITALS: BP 123/77
== END 2020-02-15 19:04 | disposition home or self-care (01) ==
LOC: ER 15:40
DX: N39.0 Urinary tract infection, site not specified (principal); R10.9 Unspecified abdominal pain; F17.200 Nicotine dependence, unspecified, uncomplicated; I10 Essential (primary) hypertension; E11.9 Type 2 diabetes mellitus without complications; Z88.2 Allergy status to sulfonamides
CPT/HCPCS: 99285; 96361; 96374; 36415; 87086; 85025; 87088; 80053; 81001; 87186; 74176; J2270; J3490; J7030

== ENCOUNTER 2020-02-28 14:08 | Emergency (ER) | payer SELFPAY ==
[2020-02-28 14:18] VITALS: BP 124/93
--- NOTE | 2020-02-28 14:32 | ER Document Report ---
ED Medical Screen (RME) - General Chief Complaint: Pain All Over Stated Complaint: LOW BACK PAIN,ABDOMINAL PAIN Time Seen by Provider: 02/28/20 14:25 Mode of Arrival: Ambulatory Information source: Patient Notes: 45-year-old female presents to ED for complaint of abdominal pain back pain pain radiates down the legs nausea sore throat headache. She states is difficulty to swallow due to her sore throat she has some lymph node swelling in her left posterior cervical chain. She also states that she was recently seen for UTI finished antibiotics and a couple days ago she started with all these things. She states that her throat is too sore to swallow very easily. There is no enlargement to her tongue or swelling in her throat there is redness to her throat. I will test for flu strep CBC chemistry urine chest x-ray and cover test. Patient states she has no sense of taste. She states she cannot smell but she cannot taste food I have greeted and performed a rapid initial assessment of this patient. A comprehensive ED assessment and evaluation of the patient, analysis of test results and completion of medical decision making process will be conducted by an additional ED providers. TRAVEL OUTSIDE OF THE [place] IN LAST 30 DAYS: No - Related Data Allergies/Adverse Reactions: ceftriaxone sodium [From Rocephin] Allergy (Verified 02/15/20 16:05) meperidine HCl [From Demerol] Allergy (Verified 02/15/20 16:05) naproxen Allergy (Verified 02/15/20 16:05) promethazine HCl [From Phenergan] Allergy (Verified 02/15/20 16:05) Sulfa (Sulfonamide Antibiotics) Allergy (Verified 02/15/20 16:05) tramadol Allergy (Verified 02/15/20 16:05) ciprofloxacin [From Cipro] Adverse Reaction (Verified 02/15/20 16:05) Past Medical History - Past Medical History Cardiac Medical History: Reports: Hx Hypertension Neurological Medical History: Reports: Hx Migraine Endocrine Medical History: Reports: Hx Diabetes Mellitus Type 2 - Diet- controlled diabetes Renal/ Medical History: Denies: Hx Peritoneal Dialysis GI Medical History: Reports: Hx Gastroesophageal Reflux Disease Musculoskeltal Medical History: Reports Hx Arthritis, Reports Hx Musculoskeletal Deformity, Reports Hx Musculoskeletal Trauma Psychiatric Medical History: Reports: Hx Anxiety, Hx Depression Traumatic Medical History: Reports: Hx Fractures - Toe Past Surgical History: Reports: Hx Adenoidectomy, Hx Dilation and Curettage, Hx Genitourinary Surgery - D&C, Hx Hysterectomy, Hx Tonsillectomy - adnoids removed, tubes in ears - Immunizations Immunizations up to date: Yes Hx Diphtheria, Pertussis, Tetanus Vaccination: Yes Physical Exam - Vital signs Vitals: Temp Pulse Resp BP Pulse Ox 98.1 F 90 18 124/93 H 100 02/28/20 14:16 02/28/20 14:16 02/28/20 14:16 02/28/20 14:16 02/28/20 14:16 Course - Vital Signs Vital signs: Temp Pulse Resp BP Pulse Ox 98.1 F 90 18 124/93 H 100 02/28/20 14:16 02/28/20 14:16 02/28/20 14:16 02/28/20 14:16 02/28/20 14:16
--- NOTE | 2020-02-28 15:49 | ER Document Report ---
ED General - General Chief Complaint: Pain All Over Stated Complaint: LOW BACK PAIN,ABDOMINAL PAIN Time Seen by Provider: 02/28/20 14:25 Mode of Arrival: Ambulatory TRAVEL OUTSIDE OF THE [place] IN LAST 30 DAYS: No - Related Data Allergies/Adverse Reactions: ceftriaxone sodium [From Rocephin] Allergy (Verified 02/15/20 16:05) meperidine HCl [From Demerol] Allergy (Verified 02/15/20 16:05) naproxen Allergy (Verified 02/15/20 16:05) promethazine HCl [From Phenergan] Allergy (Verified 02/15/20 16:05) Sulfa (Sulfonamide Antibiotics) Allergy (Verified 02/15/20 16:05) tramadol Allergy (Verified 02/15/20 16:05) ciprofloxacin [From Cipro] Adverse Reaction (Verified 02/15/20 16:05) Past Medical History - General Information source: Patient - Social History Family History: Reviewed & Not Pertinent, Arthritis, CAD, COPD, CVA, DM, Hyperlipidemia, Hypertension, Malignancy - Past Medical History Cardiac Medical History: Reports: Hx Hypertension Neurological Medical History: Reports: Hx Migraine Endocrine Medical History: Reports: Hx Diabetes Mellitus Type 2 - Diet- controlled diabetes Renal/ Medical History: Denies: Hx Peritoneal Dialysis GI Medical History: Reports: Hx Gastroesophageal Reflux Disease Musculoskeletal Medical History: Reports Hx Arthritis, Reports Hx Musculoskeletal Deformity, Reports Hx Musculoskeletal Trauma Psychiatric Medical History: Reports: Hx Anxiety, Hx Depression Traumatic Medical History: Reports: Hx Fractures - Toe Past Surgical History: Reports: Hx Adenoidectomy, Hx Dilation and Curettage, Hx Genitourinary Surgery - D&C, Hx Hysterectomy, Hx Tonsillectomy - adnoids removed, tubes in ears - Immunizations Immunizations up to date: Yes Hx Diphtheria, Pertussis, Tetanus Vaccination: Yes Physical Exam - Vital signs Vitals: Temp Pulse Resp BP Pulse Ox 98.1 F 90 18 124/93 H 100 02/28/20 14:16 02/28/20 14:16 02/28/20 14:16 02/28/20 14:16 02/28/20 14:16 Course - Vital Signs Vital signs: Temp Pulse Resp BP Pulse Ox 98.1 F 90 18 124/93 H 100 02/28/20 14:16 02/28/20 14:16 02/28/20 14:16 02/28/20 14:16 02/28/20 14:16
[2020-02-28 17:54] LABS: ALBUMIN 4.7 g/dL (3.5-5.0); ALKALINE PHOSPHATASE 77 U/L (38-126); ANION GAP 10 (5-19); ASPARTATE AMINO TRANSFERASE 25 U/L (14-36); BILIRUBIN,DIRECT 0.3 mg/dL (0.0-0.4); BILIRUBIN,TOTAL 0.5 mg/dL (0.2-1.3); BLOOD UREA NITROGEN 8 mg/dL (7-20); CALCIUM 10.3 mg/dL (8.4-10.2); CARBON DIOXIDE 28 mmol/L (22-30); CHLORIDE 102 mmol/L (98-107); GLUCOSE 84 mg/dL (75-110); POTASSIUM 4.4 mmol/L (3.6-5.0); TOTAL PROTEIN 7.9 g/dL (6.3-8.2)
[2020-02-28 17:55] LABS: A TYPE INFLUENZA AG NEGATIVE (NEGATIVE); B INFLUENZA AG NEGATIVE (NEGATIVE)
[2020-02-28 17:56] LABS: ABSOLUTE LYMPHOCYTES (AUTO) 3.1 10^3/uL (0.5-4.7); ABSOLUTE MONOCYTES (AUTO) 0.6 10^3/uL (0.1-1.4); ABSOLUTE NEUT (AUTO) 6.8 10^3/uL (1.7-8.2); BASOPHILS % (AUTO) 0.4 % (0-2); EOSINOPHILS % (AUTO) 0.3 % (0-6); HEMATOCRIT 45.5 % (36.0-47.0); HEMOGLOBIN 15.8 g/dL (12.0-15.5); LYMPHOCYTES % (AUTO) 28.9 % (13-45); MEAN CORPUSCULAR HEMOGLOBIN 32.9 pg (27.0-33.4); MEAN CORPUSCULAR HGB CONC 34.7 g/dL (32.0-36.0); MEAN CORPUSCULAR VOLUME 95 fl (80-97); MONOCYTES % (AUTO) 5.7 % (3-13); PLATELET COUNT 363 10^3/uL (150-450); RED CELL DISTRIBUTION WIDTH 13.7 % (11.5-14.0); SEGMENTED NEUTROPHILS % (AUTO) 64.7 % (42-78); TOTAL CELLS COUNTED % (AUTO) 100 %; WHITE BLOOD COUNT 10.6 10^3/uL (4.0-10.5)
[2020-02-28 18:00] LABS: APPEARANCE,URINE CLEAR; BILIRUBIN,URINE NEGATIVE (NEGATIVE); COLOR,URINE YELLOW; GLUCOSE, URINE NEGATIVE (NEGATIVE); KETONES,URINE NEGATIVE (NEGATIVE); LEUKOCYTE ESTERASE,URINE NEGATIVE (NEGATIVE); NITRITE,URINE NEGATIVE (NEGATIVE); PROTEIN,URINE NEGATIVE (NEGATIVE); URINE SPECIFIC GRAVITY 1.006; UROBILINOGEN,URINE NEGATIVE mg/dL (<2.0)
--- NOTE | 2020-02-28 20:56 | ER Document Report ---
Doctor's Note Notes: 02/28/20 20:55 Patient left without being seen. The patient left prior to this physician seeing the patient.
== END 2020-02-28 20:23 | disposition left against medical advice (07) ==
LOC: ER 14:08
DX: R10.9 Unspecified abdominal pain (principal); M54.5 Low back pain; R11.0 Nausea; R51.9 Headache, unspecified; J02.9 Acute pharyngitis, unspecified; R59.0 Localized enlarged lymph nodes; R43.9 Unspecified disturbances of smell and taste; I10 Essential (primary) hypertension; E11.9 Type 2 diabetes mellitus without complications; Z87.440 Personal history of urinary (tract) infections; Z88.1 Allergy status to other antibiotic agents; Z88.6 Allergy status to analgesic agent; Z88.5 Allergy status to narcotic agent; Z88.8 Allergy status to other drugs, medicaments and biological substances; Z53.20 Procedure and treatment not carried out because of patient's decision for unspecified reasons; Z88.2 Allergy status to sulfonamides
CPT/HCPCS: 36415; 80053; 81001; 83690; 85025; 87070; 87086; 87804; 87880; 99281

== ENCOUNTER 2020-03-09 12:21 | Emergency (ER) | payer SELFPAY ==
[2020-03-09] MEDS ORDERED: KETOROLAC TROMETHAMINE 60 MG/2 ML SDV IM ONE (14:32)
[2020-03-09] MEDS ORDERED: ONDANSETRON 4 MG TAB.RAPDIS PO ONE (14:34)
--- NOTE | 2020-03-09 14:36 | ER Document Report ---
ED Medical Screen (RME) - General Chief Complaint: Nausea/Vomiting Stated Complaint: VOMITING Time Seen by Provider: 03/09/20 14:26 Mode of Arrival: Ambulatory Information source: Patient Notes: HPI; 45-year-old female presents to the emergency room complaining of worsening chronic abdominal and back pain for the past 2 months. This is her third visit to the emergency room. States he reviewed she was seen here last week diagnosed with thrush but states she cannot afford the prescription for the nystatin. States she has only taking Prilosec which does not help. She denies any fevers. Started with nausea vomiting today. No diarrhea. No recent travel. No COVID- 19 exposure. Drove self to the emergency room. PE: Alert and oriented x3. Mild distress noted. Lungs: Clear to auscultation without rales, rhonchi, wheezes. Heart: Regular rate rhythm without murmurs, rubs, gallops. I have greeted and performed a rapid initial assessment of this patient. A comprehensive ED assessment and evaluation of the patient, analysis of test results and completion of the medical decision making process will be conducted by additional ED providers. I have specifically instructed the patient or family members with the patient to immediately return to any nursing staff should anything change in the patient's condition or with their chief complaint. TRAVEL OUTSIDE OF THE [place] IN LAST 30 DAYS: No - Related Data Allergies/Adverse Reactions: ceftriaxone sodium [From Rocephin] Allergy (Verified 02/15/20 16:05) meperidine HCl [From Demerol] Allergy (Verified 02/15/20 16:05) naproxen Allergy (Verified 02/15/20 16:05) promethazine HCl [From Phenergan] Allergy (Verified 02/15/20 16:05) Sulfa (Sulfonamide Antibiotics) Allergy (Verified 02/15/20 16:05) tramadol Allergy (Verified 02/15/20 16:05) ciprofloxacin [From Cipro] Adverse Reaction (Verified 02/15/20 16:05) Past Medical History - Past Medical History Cardiac Medical History: Reports: Hx Hypertension Neurological Medical History: Reports: Hx Migraine Endocrine Medical History: Reports: Hx Diabetes Mellitus Type 2 - Diet- controlled diabetes Renal/ Medical History: Denies: Hx Peritoneal Dialysis GI Medical History: Reports: Hx Gastroesophageal Reflux Disease Musculoskeltal Medical History: Reports Hx Arthritis, Reports Hx Musculoskeletal Deformity, Reports Hx Musculoskeletal Trauma Psychiatric Medical History: Reports: Hx Anxiety, Hx Depression Traumatic Medical History: Reports: Hx Fractures - Toe Past Surgical History: Reports: Hx Adenoidectomy, Hx Dilation and Curettage, Hx Genitourinary Surgery - D&C, Hx Hysterectomy, Hx Tonsillectomy - adnoids removed, tubes in ears - Immunizations Immunizations up to date: Yes Hx Diphtheria, Pertussis, Tetanus Vaccination: Yes Physical Exam - Vital signs Vitals: Temp Pulse Resp BP Pulse Ox 97.7 F 82 22 H 129/78 H 99 03/09/20 13:22 03/09/20 13:22 03/09/20 13:22 03/09/20 13:22 03/09/20 13:22 Course - Vital Signs Vital signs: Temp Pulse Resp BP Pulse Ox 97.7 F 82 22 H 129/78 H 99 03/09/20 13:22 03/09/20 13:22 03/09/20 13:22 03/09/20 13:22 03/09/20 13:22
[2020-03-09 14:54] LABS: ABSOLUTE BASOPHILS # (AUTO) 0.1 10^3/uL (0.0-0.2); ABSOLUTE EOSINOPHILS # (AUTO) 0.1 10^3/uL (0.0-0.6); ABSOLUTE LYMPHOCYTES (AUTO) 2.8 10^3/uL (0.5-4.7); ABSOLUTE MONOCYTES (AUTO) 0.6 10^3/uL (0.1-1.4); ABSOLUTE NEUT (AUTO) 7.2 10^3/uL (1.7-8.2); EOSINOPHILS % (AUTO) 0.5 % (0-6); HEMATOCRIT 41.6 % (36.0-47.0); HEMOGLOBIN 14.8 g/dL (12.0-15.5); LYMPHOCYTES % (AUTO) 25.8 % (13-45); MEAN CORPUSCULAR HEMOGLOBIN 33.7 pg (27.0-33.4); MEAN CORPUSCULAR HGB CONC 35.7 g/dL (32.0-36.0); MEAN CORPUSCULAR VOLUME 94 fl (80-97); MONOCYTES % (AUTO) 5.7 % (3-13); PLATELET COUNT 434 10^3/uL (150-450); RED CELL DISTRIBUTION WIDTH 13.3 % (11.5-14.0); TOTAL CELLS COUNTED % (AUTO) 100 %; WHITE BLOOD COUNT 10.8 10^3/uL (4.0-10.5)
[2020-03-09 15:14] LABS: ALBUMIN 4.3 g/dL (3.5-5.0); ALKALINE PHOSPHATASE 95 U/L (38-126); ANION GAP 11 (5-19); ASPARTATE AMINO TRANSFERASE 20 U/L (14-36); BILIRUBIN,DIRECT 0.2 mg/dL (0.0-0.4); BILIRUBIN,TOTAL 0.6 mg/dL (0.2-1.3); BLOOD UREA NITROGEN 9 mg/dL (7-20); CALCIUM 10.5 mg/dL (8.4-10.2); CARBON DIOXIDE 23 mmol/L (22-30); CHLORIDE 104 mmol/L (98-107); GLUCOSE 76 mg/dL (75-110); POTASSIUM 4.3 mmol/L (3.6-5.0); TOTAL PROTEIN 7.1 g/dL (6.3-8.2)
--- NOTE | 2020-03-09 15:35 | RADIOLOGY REPORT (SQ) ---
EXAM DESCRIPTION: KUB/ABDOMEN (SINGLE VIEW) IMAGES COMPLETED DATE/TIME: 03/09/2020 3:25 pm REASON FOR STUDY: abdominal pain COMPARISON: None. NUMBER OF VIEWS: One view. TECHNIQUE: Supine radiographic image of the abdomen acquired. LIMITATIONS: None. FINDINGS: BOWEL GAS PATTERN: Normal bowel gas pattern. No dilated loops. CALCIFICATIONS: No suspicious calcifications. SOFT TISSUES: No gross mass or suggestion of organomegaly. HARDWARE: None in the abdomen. BONES: No acute fracture. No worrisome bone lesions. OTHER: No other significant finding. IMPRESSION: NO RADIOGRAPHIC EVIDENCE FOR ACUTE ABDOMINAL DISEASE. TECHNICAL DOCUMENTATION: JOB ID: [id number] 2010 [employer]- All Rights Reserved Reading location - IP/workstation name: [email or web address]
[2020-03-09] MEDS ORDERED: ACETAMINOPHEN 325 MG TABLET PO ONE (21:17)
[2020-03-10] MEDS ORDERED: MORPHINE SULFATE 10 MG/ML INJ IV ONE (00:47)
[2020-03-10] MEDS ORDERED: ONDANSETRON HCL INJ/PF 4 MG/2 ML SDV IV ONE (00:47)
[2020-03-10] MEDS ORDERED: NORMAL SALINE 1000 ML 1,000 ML IV ONE (00:48)
[2020-03-10] MEDS ORDERED: NYSTATIN 500000 UNIT/5 ML UDCUP PO ONE (01:04)
--- NOTE | 2020-03-10 01:11 | ER Document Report ---
ED General - General Chief Complaint: Nausea/Vomiting Stated Complaint: VOMITING Time Seen by Provider: 03/09/20 14:26 Mode of Arrival: Ambulatory TRAVEL OUTSIDE OF THE [place] IN LAST 30 DAYS: No - HPI Notes: Patient is a 45-year-old female who presents to the emergency department for evaluation of abdominal pain. She has chronic abdominal and back pain. Is been worsening over the last several weeks. She states it got more severe today. It is a cramping and sharp pain, throughout her entire abdomen. It occasionally radiates into her back. She denies any associated fevers or chills. She has had nausea but no emesis. She had a bowel movement yesterday. She states she normally does not have a bowel movement daily. There was nothing abnormal about this bowel movement. She states she started having urinary frequency and mild dysuria this morning. She was diagnosed with a UTI a few weeks ago, treated with Keflex, she states that the symptoms did improve. She states he was also diagnosed with thrush, could not fill the prescription as it was cost prohibitive. She denies any vaginal discharge. - Related Data Allergies/Adverse Reactions: ceftriaxone sodium [From Rocephin] Allergy (Verified 02/15/20 16:05) meperidine HCl [From Demerol] Allergy (Verified 02/15/20 16:05) naproxen Allergy (Verified 02/15/20 16:05) promethazine HCl [From Phenergan] Allergy (Verified 02/15/20 16:05) Sulfa (Sulfonamide Antibiotics) Allergy (Verified 02/15/20 16:05) tramadol Allergy (Verified 02/15/20 16:05) ciprofloxacin [From Cipro] Adverse Reaction (Verified 02/15/20 16:05) Past Medical History - General Information source: Patient - Social History Smoking Status: Current Every Day Smoker Family History: Reviewed & Not Pertinent, Arthritis, CAD, COPD, CVA, DM, Hyperlipidemia, Hypertension, Malignancy - Past Medical History Cardiac Medical History: Reports: Hx Hypertension Neurological Medical History: Reports: Hx Migraine Endocrine Medical History: Reports: Hx Diabetes Mellitus Type 2 - Diet- controlled diabetes Renal/ Medical History: Denies: Hx Peritoneal Dialysis GI Medical History: Reports: Hx Gastroesophageal Reflux Disease Musculoskeletal Medical History: Reports Hx Arthritis, Reports Hx Musculoskele eitan Deformity, Reports Hx Musculoskeletal Trauma Psychiatric Medical History: Reports: Hx Anxiety, Hx Depression Traumatic Medical History: Reports: Hx Fractures - Toe Past Surgical History: Reports: Hx Adenoidectomy, Hx Dilation and Curettage, Hx Genitourinary Surgery - D&C, Hx Hysterectomy, Hx Tonsillectomy - adnoids jose armando guicho, tubes in ears - Immunizations Immunizations up to date: Yes Hx Diphtheria, Pertussis, Tetanus Vaccination: Yes Review of Systems - Review of Systems Constitutional: No symptoms reported EENT: No symptoms reported Cardiovascular: No symptoms reported Respiratory: No symptoms reported Gastrointestinal: See HPI Genitourinary: See HPI Female Genitourinary: No symptoms reported Musculoskeletal: No symptoms reported Skin: No symptoms reported Neurological/Psychological: No symptoms reported -: Yes All other systems reviewed and negative Physical Exam - Vital signs Vitals: Temp Pulse Resp BP Pulse Ox 97.7 F 82 22 H 129/78 H 99 03/09/20 13:22 03/09/20 13:22 03/09/20 13:22 03/09/20 13:22 03/09/20 13:22 - Notes Notes: This is a 45-year-old female who appears older than her stated age, in a mild amount of distress. She is pacing around the room, visibly uncomfortable. Vital signs reviewed, please refer to chart. Head is normocephalic, atraumatic. Pupils equal round, reactive to light. Neck is supple without meningismus. Heart is regular rate and rhythm. Lungs are clear to auscultation bilaterally. Abdomen is soft, diffusely tender without rebound or guarding, normoactive bowel sounds throughout. Extremities without cyanosis, clubbing. Posterior calves are nontender. Peripheral pulses are equal. Skin is warm and dry. Patient is awake, alert, neurological exam is nonfocal. Course - Re-evaluation Re-evalutation: 03/10/20 01:10 Patient presents to the emergency department for evaluation. She was initially seen through triage. Laboratory investigations and medications were as ordered. The patient has been unable to provide a urine sample despite being here for 12 hours. She states "you are going to have to cath me" and request that this be done. I did order an IV to be placed with administration of morphine, Zofran, and a straight cath to be performed. Patient is currently stable. She is had multiple CTs in the past. I am concerned about the possibility of a UTI contributing to her symptoms. Her KUB is largely unremarkable. She is currently stable, we will continue to monitor. 03/10/20 03:06 Patient's findings reveal a UTI. I reviewed her last urine culture. She is all ergic to ceftriaxone. I asked her about her allergic reaction to Cipro. She states "I am not really allergic, it just does not work." I explained to her that the last bacterial infection she had in her urine showed susceptibility to Cipro and Levaquin. She wishes to try the Levaquin. I explained to her that it would be a great deal more expensive, she states she understands and still wants to take this medication. She is given her first dose here. Because of her history of multiple UTIs, I will ahead and send her with a 5-day course. She is to follow-up with primary care, return to the ED with worsening or new concerning symptoms of any sort. - Vital Signs Vital signs: Temp Pulse Resp BP Pulse Ox 98.1 F 73 20 133/88 H 99 03/09/20 22:02 03/09/20 22:02 03/09/20 22:02 03/09/20 22:02 03/09/20 22:02 - Laboratory Result Diagrams: 03/09/20 14:38 03/09/20 14:38 Laboratory results interpreted by me: 03/09/20 03/09/20 03/10/20 14:38 14:38 02:30 WBC 10.8 H MCH 33.7 H Calcium 10.5 H Urine Protein 100 H Urine Blood SMALL H Ur Leukocyte Esterase LARGE H - Diagnostic Test Radiology reviewed: Reports reviewed Radiology results interpreted by me: 03/10/20 01:11 KUB X-Ray 03/09/20 14:31 IMPRESSION: NO RADIOGRAPHIC EVIDENCE FOR ACUTE ABDOMINAL DISEASE. Discharge - Discharge Clinical Impression: Generalized abdominal pain UTI (urinary tract infection) Qualifiers: Urinary tract infection type: acute cystitis Hematuria presence: without hematuria Qualified Code(s): N30.00 - Acute cystitis without hematuria Condition: Stable Disposition: HOME, SELF-CARE Instructions: Abdominal Pain ([facility]), Urinary Anesthetic Agent ([facility]), Urinary Tract Infection ([facility]) Additional Instructions: Take all the antibiotic as prescribed. Take Pyridium as needed for pain, stay hydrated. Follow-up with primary care this week. Return to the emergency depar tment with worsening or new concerning symptoms of any sort.
[2020-03-10 02:46] LABS: APPEARANCE,URINE TURBID; BILIRUBIN,URINE NEGATIVE (NEGATIVE); COLOR,URINE YELLOW; GLUCOSE, URINE NEGATIVE (NEGATIVE); KETONES,URINE NEGATIVE (NEGATIVE); LEUKOCYTE ESTERASE,URINE LARGE (NEGATIVE); NITRITE,URINE NEGATIVE (NEGATIVE); PROTEIN,URINE 100 mg/dL (NEGATIVE); URINE SPECIFIC GRAVITY 1.013; UROBILINOGEN,URINE NEGATIVE mg/dL (<2.0)
[2020-03-10 02:56] LABS: URINE AMPHETAMINES SCREEN NEGATIVE; URINE BARBITURATES SCREEN NEGATIVE; URINE BENZODIAZEPINES SCREEN NEGATIVE; URINE COCAINE SCREEN NEGATIVE; URINE METHADONE SCREEN NEGATIVE; URINE PHENCYCLIDINE SCREEN NEGATIVE
[2020-03-10 02:58] LABS: URINE MARIJUANA (THC) SCREEN UNCONFIRMED POSITIVE
[2020-03-10] MEDS ORDERED: LEVOFLOXACIN 750 MG TABLET PO ONE (03:05)
[2020-03-10] MEDS ORDERED: PHENAZOPYRIDINE HCL 200 MG TABLET PO ONE (03:06)
[2020-03-10 03:59] VITALS: BP 135/86
== END 2020-03-10 03:57 | disposition home or self-care (01) ==
LOC: ER 12:21
DX: N30.00 Acute cystitis without hematuria (principal); R10.84 Generalized abdominal pain; R11.2 Nausea with vomiting, unspecified; G89.29 Other chronic pain; M54.9 Dorsalgia, unspecified; F17.200 Nicotine dependence, unspecified, uncomplicated; I10 Essential (primary) hypertension; E11.9 Type 2 diabetes mellitus without complications; Z88.2 Allergy status to sulfonamides
CPT/HCPCS: 99284; 96361; 96374; 36415; 85025; 80053; 81001; 80307; 74018; J1885; S0119; J2270; J3490; J2405; J7030